=== PATIENT | female | born 1995 | race African-American/Black ===

== ENCOUNTER → 2018-04-27 14:24 | Outpatient (CLI) | payer MEDICAID, SELFPAY ==
[2018-04-27 15:03] LABS: Basophils % 0.3 % (0.1-2.0); Eosinophils # 0.2 K/mm3 (0.0-0.4); Eosinophils % 2.1 % (0.1-12.0); Hematocrit 34.2 % (37.0-47.0); Hemoglobin 10.9 g/dL (12.2-16.2); Lymphocytes # 1.7 K/mm3 (0.7-4.5); Lymphocytes % 15.7 K/mm3 (10-50); Mean Corpuscular HGB Conc 31.8 g/dL (31.8-35.4); Mean Corpuscular Hemoglobin 27.3 pg (27.0-31.2); Mean Platelet Volume 6.9 fl (7.4-10.4); Monocytes # 0.4 K/mm3 (0.1-1.0); Monocytes % 3.6 % (1.7-9.3); Neutrophils # 8.3 K/mm3 (1.8-7.8); Neutrophils % 78.3 % (37.0-80.0); Platelet Count 437 K/mm3 (142-424); Red Blood Count 3.98 M/mm3 (4.20-5.40); Red Cell Distribution Width 14.5 % (11.5-17.5); White Blood Count 10.6 K/mm3 (4.8-10.8)
[2018-04-29 10:12] LABS: HIV Screen 4th Generation wRfx Non Reactive (Non Reactive); Hepatitis B Surface Antigen Negative (Negative); Hepatitis C Antibody 0.2 s/co ratio (0.0-0.9); Rubella Antibodies, IgG 3.38 index (Immune >0.99)
[2018-04-30 09:09] LABS: Rapid Plasma Reagin Ab Titer Non Reactive (NonRea<1:1)
== END ==
PROVIDERS: Family Provider Nurse Practitioner Obstetrics & Gynecology; PCP Physician Assistant; Visit Provider Nurse Practitioner Obstetrics & Gynecology
DX: Z34.90 Encounter for supervision of normal pregnancy, unspecified, unspecified trimester (principal)
CPT/HCPCS: 36415; 85025; 86592; 86703; 86762; 86850; 87340; 87380; G0432

== ENCOUNTER → 2018-05-04 14:06 | Outpatient (CLI) | payer MEDICAID, SELFPAY ==
--- NOTE | 2018-05-04 14:07 | US_ITS ---
US OB /maternal detail: INDICATION: ITS.REASON: US OB Complete ORDERING PHYSICIAN: Srikanth Calero MD PATIENT AGE: 22 years TECHNIQUE: ultrasound transabdominal scanning. COMPARISON: No previous relevant studies. FINDINGS: Single viable intrauterine gestation. Cephalic position. Placenta: Posterior placenta grade . There is amount fluid. The cervix appears satisfactory. Closed and measuring in length. Complete survey performed and was unremarkable on the submitted images as in PACS. No discrete anomalies identified on survey imaging by technologist. Active fetus. Three-vessel cord with satisfactory umbilical cord insertion. 4- chamber heart noted. Survey of brain & ventricles. Face and neck survey unremarkable. Diaphragm and chest views unremarkable. Abdomen: Both kidneys noted and unremarkable. Stomach noted and satisfactory. Spine: Survey of the spine satisfactory with no anomalies identified nor imaged. Both arms and legs noted. Amniotic Fluid: Adequate. Maternal adnexa: No significant findings. Measurements: Average ultrasound age 20w2d. Gestational Age 20w5d. Estimated due date by ultrasound age 0109/19/2018. Estimated weight 323 grams. BPD = 20w6d OFD = 21w0d HC = 20w2d AC = 19w3d FL = 20w4d Growth Percentile= 12% based on established due date of 09/16/2018 Heart Rate = 161 Cerebellum = 20w6d Humerus = 20w6d HC/AC is 1.27 (1.09-1.26). CI is 78% (70-86%). FL/BPD is 69%. FL/AC is 24%. IMPRESSION: There is a single live fetus in cephalic presentation. Fetus is active with all parameters correlating. No obvious anomalies. Average ultrasound age is 20 weeks and 2 days. Sinus posterior and grade 1. Average amniotic fluid volume. See above for detail
== END ==
PROVIDERS: Family Provider Nurse Practitioner Obstetrics & Gynecology; PCP Physician Assistant; Visit Provider Nurse Practitioner Obstetrics & Gynecology
DX: Z36.0 Encounter for antenatal screening for chromosomal anomalies (principal)
CPT/HCPCS: 76811

== ENCOUNTER 2018-08-10 13:57 | Outpatient (CLI) | payer MEDICAID, SELFPAY ==
[2018-08-10 14:14] VITALS: BMI 32.5
[2018-08-10 14:23] LABS: Microscopic, Urine URINE MICROSCOPIC (MICROSCOPIC)
[2018-08-10 14:26] LABS: Appearance,Urine SL CLOUDY (Clear); Bilirubin,Urine Negative (Negative); Blood, Urine Negative (Negative); Color,Urine YELLOW (Yellow); Glucose,Urine (UA) Negative (Negative); Ketones,Urine 1+ (Negative); Leukocyte Esterase,Urine TRACE (Negative); Nitrate,Urine Negative (Negative); PH,Urine 6.5 (5.0-8.5); Protein,Urine 1+ (Negative); Specific Gravity, Urine 1.025 (1.005-1.030)
[2018-08-10 14:29] VITALS: BP 131/75; PULSE 91; TEMP 36.9; O2SAT 96; BMI 32.5
[2018-08-10 14:34] LABS: Amphetamine/Metha Screen,Urine Negative ng/mL (<1000); Barbiturates Screen,Urine Negative ng/mL (<200); Benzodiazepines Screen,Urine Negative ng/mL (<200); Cannabinoid Screen,Urine Negative ng/mL (<50); Cocaine Screen,Urine Negative ng/mL (<300); Methadone Screen,Urine Negative ng/mL (<300); Opiate Screen,Urine Negative ng/mL (<300); Phencyclidine Screen,Urine Negative ng/mL (<25)
[2018-08-10 14:41] LABS: Fetal Membrane Rupture (Rapid) Negative (Negative)
[2018-08-10 14:45] LABS: Bacteria,Urine 1+ /lpf
--- NOTE | 2018-08-10 16:51 | P.PN_ITS ---
Internal Medicine - PN: Subj *Date: 08/10/18 *Time: 16:50 Interval history: She is a 23-year-old 3 para 2 at 34 weeks gestational age. Splaying of some contractions. On the monitor there were a few mild contractions. Her cervix is long and closed. Exam Vital signs and Labs for Last 24 Hours: Temp Pulse BP Pulse Ox 98.4 F 91 H 131/75 96 08/10/18 14:29 08/10/18 14:29 08/10/18 14:29 08/10/18 14:29 Laboratory Results - last 24 hr 08/10/18 14:11: Urine Color Yellow, Urine Appearance Sl cloudy, Urine pH 6.5, Ur Specific [place] 1.025, Urine Protein 1+, Urine Glucose (UA) Negative, Urine Ketones 1+, Urine Blood Negative, Urine Nitrate Negative, Urine Bilirubin Negative, Urine Urobilinogen 1.0, Ur Leukocyte Esterase Trace, Urine RBC None, Urine WBC 3-5, Ur Squamous Epith Cells 5-10, Urine Bacteria 1+ 08/10/18 14:11: Urine Opiates Screen Negative, Urine Methadone Screen Negative, Ur Barbituates Screen Negative, Ur Phencyclidine Scrn Negative, Ur Amphetamines Screen Negative, U Benzodiazepines Scrn Negative, Urine Cocaine Screen Negative, U Marijuana (THC) Screen Negative 08/10/18 14:25: Membrane Rupture Negative I & O for Last 24 hours: Intake & Output 08/08/18 08/09/18 08/10/18 08/11/18 11:59 11:59 11:59 11:59 Weight 208 lb - Constitutional no acute distress Assessment and Plan (1) False labor before 37 completed weeks of gestation Current visit: Yes Status: Acute Category: Medical Code(s): O47.00 - False labor before 37 completed weeks of gestation, unspecified trimester - Assessment and plan all Dx Assessment and Plan for all problems:: We have given her a liter of fluid as well as 1 dose of Brethine and her contractions are settled. She feels much better. We will plan to send her home. We will continue to drink lots of fluids.
== END 2018-08-10 16:52 | disposition home or self-care (01) ==
LOC: OBOUT 13:58 → OB 13:59
PROVIDERS: PCP Physician Assistant; Visit Provider Nurse Practitioner Obstetrics & Gynecology
DX: O47.03 False labor before 37 completed weeks of gestation, third trimester (principal); Z3A.34 34 weeks gestation of pregnancy; M54.5 Low back pain
CPT/HCPCS: 59025; 80305; 81001; 84112; 96360; 96372

== ENCOUNTER → 2018-08-19 16:42 | Outpatient (CLI) | payer SELFPAY | LOC: LAB 16:43 → LAB.DROPOF 08-20 15:01 | PROVIDERS: Visit Provider Nurse Practitioner Obstetrics & Gynecology | DX: Z34.90 Encounter for supervision of normal pregnancy, unspecified, unspecified trimester (principal) | CPT/HCPCS: 86403 ==

== ENCOUNTER 2018-09-08 19:34 | Outpatient (CLI) | payer MEDICAID, SELFPAY ==
[2018-09-08 21:24] VITALS: BMI 35.0
[2018-09-08 21:27] VITALS: BP 142/90; PULSE 90; RESP 20; TEMP 37.3; O2SAT 96; BMI 34.0
[2018-09-08 21:41] LABS: Microscopic, Urine URINE MICROSCOPIC (MICROSCOPIC)
[2018-09-08 21:45] LABS: Appearance,Urine TURBID (Clear); Bilirubin,Urine Negative (Negative); Blood, Urine Negative (Negative); Color,Urine YELLOW (Yellow); Glucose,Urine (UA) Negative (Negative); Ketones,Urine TRACE (Negative); Leukocyte Esterase,Urine 1+ (Negative); Nitrate,Urine Negative (Negative); PH,Urine 7.5 (5.0-8.5); Protein,Urine 1+ (Negative); Specific Gravity, Urine 1.025 (1.005-1.030); Urobilinogen,Urine 0.2 EU/dl (0.2)
[2018-09-08 21:57] LABS: Bacteria,Urine Trace /lpf; Squamous Epithelial Cell,Urine 20-50 #/hpf (0-5)
== END 2018-09-08 22:00 | disposition home or self-care (01) ==
LOC: OBOUT 19:39 → OB 19:39
PROVIDERS: PCP Nurse Practitioner Obstetrics & Gynecology; Visit Provider Obstetrics & Gynecology
DX: O36.8130 Decreased fetal movements, third trimester, not applicable or unspecified (principal); Z3A.38 38 weeks gestation of pregnancy
CPT/HCPCS: 59025; 81001; 87086

== ENCOUNTER 2018-09-13 00:02 | Outpatient (CLI) | payer MEDICAID, SELFPAY ==
[2018-09-13 00:15] VITALS: BMI 74.9
[2018-09-13 00:37] LABS: Appearance,Urine SL CLOUDY (Clear); Bilirubin,Urine Negative (Negative); Blood, Urine Negative (Negative); Color,Urine YELLOW (Yellow); Glucose,Urine (UA) Negative (Negative); Ketones,Urine Negative (Negative); Leukocyte Esterase,Urine 1+ (Negative); Microscopic, Urine URINE MICROSCOPIC (MICROSCOPIC); Nitrate,Urine Negative (Negative); PH,Urine 7.5 (5.0-8.5); Protein,Urine 1+ (Negative)
[2018-09-13 00:39] LABS: Squamous Epithelial Cell,Urine 20-50 #/hpf (0-5)
[2018-09-13 00:42] VITALS: BMI 34.0
[2018-09-13 00:49] LABS: Fetal Membrane Rupture (Rapid) Negative (Negative)
== END 2018-09-13 01:14 | disposition home or self-care (01) ==
LOC: OBOUT 00:03 → OB 00:04
PROVIDERS: PCP Physician Assistant; Referring Provider Nurse Practitioner Obstetrics & Gynecology; Visit Provider Obstetrics & Gynecology
DX: O60.03 Preterm labor without delivery, third trimester (principal); Z3A.37 37 weeks gestation of pregnancy
CPT/HCPCS: 59025; 81001; 84112; 87086

== ENCOUNTER 2018-09-15 04:18 | Inpatient (IN) ==
[2018-09-15 05:58] LABS: Microscopic, Urine URINE MICROSCOPIC (MICROSCOPIC)
[2018-09-15 06:03] LABS: Basophils # 0.1 K/mm3 (0-0.2); Basophils % 0.3 % (0.1-2.0); Eosinophils # 0.1 K/mm3 (0.0-0.4); Eosinophils % 0.5 % (0.1-12.0); Hematocrit 28.7 % (37.0-47.0); Hemoglobin 8.7 g/dL (12.2-16.2); Lymphocytes # 1.8 K/mm3 (0.7-4.5); Mean Corpuscular HGB Conc 30.5 g/dL (31.8-35.4); Mean Corpuscular Hemoglobin 24.4 pg (27.0-31.2); Mean Corpuscular Volume 79.9 fl (81-99); Mean Platelet Volume 8.2 fl (7.4-10.4); Monocytes # 0.8 K/mm3 (0.1-1.0); Monocytes % 5.8 % (1.7-9.3); Neutrophils # 10.5 K/mm3 (1.8-7.8); Neutrophils % 79.4 % (37.0-80.0); Platelet Count 415 K/mm3 (142-424); Red Blood Count 3.59 M/mm3 (4.20-5.40); Red Cell Distribution Width 16.6 % (11.5-17.5); White Blood Count 13.2 K/mm3 (4.8-10.8)
[2018-09-15 06:08] LABS: Appearance,Urine CLEAR (Clear); Bilirubin,Urine Negative (Negative); Blood, Urine Negative (Negative); Color,Urine YELLOW (Yellow); Glucose,Urine (UA) Negative (Negative); Ketones,Urine Negative (Negative); Leukocyte Esterase,Urine 1+ (Negative); Protein,Urine 1+ (Negative); Urobilinogen,Urine 0.2 EU/dl (0.2)
[2018-09-15 06:14] LABS: Amorphous Sediment,Urine Trace /lpf; Bacteria,Urine 2+ /lpf; Mucus,Urine 1+ /lpf; RBC,Urine Occasional #/hpf (0-3)
[2018-09-15 06:17] LABS: Amphetamine/Metha Screen,Urine Negative ng/mL (<1000); Barbiturates Screen,Urine Negative ng/mL (<200); Benzodiazepines Screen,Urine Negative ng/mL (<200); Cannabinoid Screen,Urine Negative ng/mL (<50); Cocaine Screen,Urine Negative ng/mL (<300); Methadone Screen,Urine Negative ng/mL (<300); Opiate Screen,Urine Negative ng/mL (<300); Phencyclidine Screen,Urine Negative ng/mL (<25)
--- NOTE | 2018-09-15 08:47 | Procedure Note ---
- Delivery Note Delivery Date:: 09/15/18 Delivery Time:: 08:33 Anesthesia Type: None Was labor medically induced?: Yes Induction method: per pitocin protocol Gestational age (weeks): 39 Infant delivered prior to 39 weeks?: No Infant Gender: Male at 1 minute: 8 at 5 minutes: 9 AF:: Clear fluid Delivery Procedure:: She is a 23-year-old 4 para 2 aborta 1 who was 39 and 3 weeks gestational age and she has been very uncomfortable and was having some episodes of labor prior to delivery. She also had episodes of increased blood pressure on arrival here today.. As result of that she was offered augmentation of labor at 39 and 3 weeks. She was started on IV oxytocin. She rapidly progressed to full dilation and delivered spontaneously a liveborn male child at 8:33 AM on the morning of September 15, 2018. On deliver the head the anterior shoulder rapidly delivered followed by the rest of the infant's body atraumatically. The baby cried spontaneously. We allowed the cord to continue to pulsate for approximately 1 minute. The cord was then doubly clamped and cut. The baby was then placed on the mother's abdomen for further care. The nurses assigned Apgars of 8 at 1 minute and 9 at 5 minutes. We then obtained cord blood as well as cord pH. PH is currently pending. Using gentle traction on the cord and counter traction on the fundus I was able to easily deliver the placenta intact. It had a normal three-vessel cord. There are no perineal or vaginal lacerations. Estimated blood loss was approximately 400 cc. Her business mail entry clerk is Dr. Espinoza and she plans to bottlefeed. She has O+ blood, she is rubella immune and was group B stopcock is negative. Her blood pressure is still slightly elevated we will observe this over the next short period of time. If it remains elevated we will go ahead and start her on magnesium sulfate. She has received IV antibiotics while in labor since she had a low-grade temperature on arrival up to 100.1 degrees. Placental Delivery Description: Spontaneous
--- NOTE | 2018-09-15 08:50 | History & Physical Report ---
OB - H&P: HPI Antepartum - History of Present Illness Chief complaint: Term , history of labor, increased blood pressure History of present illness: She is a 23-year-old 4 para 2 aborta 1 who is 39 and 3 weeks gestational age. She has had episodes of labor and was observed earlier in the for this. She was offered augmentation of labor at term. She also had an increase in her blood pressure on arrival. It was in the 180/100 range. - History of Present Criteria for establishing EDC:: LMP confirmed by 1st trimester US care: good care Ultrasounds: normal 1st trimester US, normal mid trimester US Obstetrical complications: preeclampsia Medical complications: none - Labs Blood type: O (+) positive Rubella: immune RPR/VDRL: nonreactive GBS status: negative [facility] History I have reviewed the patient's past medical history: Yes Medical History: Denies:: Diabetes Mellitus Type 1, Diabetes Mellitus Type 2 Other Surgeries: Yes: No Previous Surgery. No: Amputation: No Fractures: No - *Social History Smoking Status: Never smoker Alcohol Intake: never *Family Hx:: No significant family history MANAGER TECHNICAL history: Spontaneous Para: 2 Review of Systems - Review of Systems Review of systems:: pertinent systems reviewed and negative unless documented below Meds Home Medications Medication Instructions Recorded Confirmed Type multivitamin with minerals-folic 200 mcg PO DAILY 04/27/18 09/15/18 History acid 200 mcg chewable tablet ferrous sulfate 325 mg (65 mg 325 mg PO DAILY 09/15/18 09/15/18 History iron) tablet,delayed release Allergies Allergy/AdvReac Type Severity Reaction Status Date / Time Penicillins [PENICILLINS] Allergy Unknown -- Verified 09/01/18 16:14 OB - H&P: Exam - Physical Exam Vital signs: Temp Pulse BP Pulse Ox 99.0 F 110 H 166/103 H 100 09/15/18 04:59 09/15/18 04:59 09/15/18 04:59 09/15/18 04:59 OB - Results - Labs Labs: Short CBC 09/15/18 Range/Units 04:45 WBC 13.2 H (4.8-10.8) K/mm3 Hgb 8.7 L (12.2-16.2) g/dL Hct 28.7 L (37.0-47.0) % Plt Count 415 (142-424) K/mm3 Urine 09/15/18 Range/Units 04:35 Urine Color Yellow (Yellow) Urine Appearance Clear (Clear) Urine pH 7.0 (5.0-8.5) Ur Specific [place] 1.020 (1.005-1.030) Urine Protein 1+ (Negative) Urine Glucose (UA) Negative (Negative) OB - A/P Antepartum (1) Term delivered Current visit: Yes Status: Acute (2) induced hypertension, delivered, current hospitalization Current visit: Yes Status: Acute - Additional Plan Planning to breastfeed?: No Plan: induction Additional Information:: She is admitted for augmentation of labor with oxytocin.
[2018-09-15 11:25] LABS: Anion Gap 11.9 mEq/L (5-15); Calcium 8.1 mg/dL (8.5-10.1); Uric Acid 3.8 mg/dL (2.6-7.2)
[2018-09-15 11:33] LABS: Potassium 2.9 mmoL/L (3.5-5.1)
[2018-09-15 11:48] LABS: Basophils % 0.2 % (0.1-2.0); Eosinophils % 0.1 % (0.1-12.0); Hematocrit 28.6 % (37.0-47.0); Hemoglobin 8.6 g/dL (12.2-16.2); Lymphocytes # 0.8 K/mm3 (0.7-4.5); Lymphocytes % 7.2 % (10-50); Mean Corpuscular HGB Conc 30.2 g/dL (31.8-35.4); Mean Corpuscular Volume 79.5 fl (81-99); Mean Platelet Volume 7.7 fl (7.4-10.4); Monocytes # 0.5 K/mm3 (0.1-1.0); Monocytes % 3.9 % (1.7-9.3); Neutrophils # 10.3 K/mm3 (1.8-7.8); Neutrophils % 88.7 % (37.0-80.0); Platelet Count 389 K/mm3 (142-424); Red Cell Distribution Width 16.8 % (11.5-17.5); White Blood Count 11.7 K/mm3 (4.8-10.8)
[2018-09-15 12:16] LABS: Activated Partial Thrombo Time 30.6 seconds (23.6-34.0); INR 0.96 (0.9-1.1); Prothrombin Time 9.9 seconds (9.4-11.8)
[2018-09-15 14:58] LABS: Lymphocytes % 6 % (10-50); Monocytes % 2 % (2-9); Neutrophils % 92 % (42-76); Total Cells Counted 100
[2018-09-15 14:59] LABS: Hypochromasia 2+
[2018-09-16 06:50] LABS: Basophils % 0.3 % (0.1-2.0); Eosinophils % 0.1 % (0.1-12.0); Hematocrit 25.9 % (37.0-47.0); Lymphocytes # 0.7 K/mm3 (0.7-4.5); Lymphocytes % 6.8 % (10-50); Mean Corpuscular HGB Conc 29.7 g/dL (31.8-35.4); Mean Corpuscular Hemoglobin 24.1 pg (27.0-31.2); Mean Corpuscular Volume 81.1 fl (81-99); Monocytes # 0.5 K/mm3 (0.1-1.0); Monocytes % 4.7 % (1.7-9.3); Neutrophils # 8.4 K/mm3 (1.8-7.8); Platelet Count 369 K/mm3 (142-424); Red Blood Count 3.19 M/mm3 (4.20-5.40); White Blood Count 9.6 K/mm3 (4.8-10.8)
[2018-09-16 06:54] LABS: Hemoglobin 7.7 g/dL (12.2-16.2)
[2018-09-16 08:15] LABS: Hypochromasia 2+; Lymphocytes % 9 % (10-50); Monocytes % 2 % (2-9); Neutrophils % 89 % (42-76); Total Cells Counted 100
--- NOTE | 2018-09-16 08:18 | Progress Note ---
Internal Medicine - PN: Subj *Date: 09/16/18 *Time: 08:15 Interval history: She is doing a little better this morning. Yesterday her blood pressure keiko and it was in the 180 over range. As a result of that we have started her on magnesium sulfate 2 g an hour. Her blood pressure is normalized now. When she came in yesterday she had a low-grade temperature and over the course of the day began to have body aches. We elected to perform a rapid flu test and she has influenza a. Have started her on Tamiflu. We have droplet protection in the room. She refused to allow the baby to go to another room with her mother. She has a hemoglobin of 7.7 but she denies any dizziness or weakness. Her hemoglobin prior to delivery was 9.2. I suspect she has anemia as a result of poor diet and lack of vitamin and mineral intake throughout the . Exam Vital signs and Labs for Last 24 Hours: Temp Pulse BP Pulse Ox 99.0 F 110 H 166/103 H 100 09/15/18 04:59 09/15/18 04:59 09/15/18 04:59 09/15/18 04:59 Laboratory Results - last 24 hr 09/15/18 08:44: Cord ABG pH 7.41 09/15/18 10:28: WBC 11.7 H, RBC 3.60 L, Hgb 8.6 L, Hct 28.6 L, MCV 79.5 L, MCH 24.0 L, MCHC 30.2 L, RDW 16.8, Plt Count 389, MPV 7.7, Neut % (Auto) 88.7 H, Lymph % (Auto) 7.2 L, [place] % (Auto) 3.9, Eos % (Auto) 0.1, Baso % (Auto) 0.2, Neut # (Auto) 10.3 H, Lymph # (Auto) 0.8, [place] # (Auto) 0.5, Eos # (Auto) 0.0, Baso # (Auto) 0.0, Total Counted 100, Neutrophils % (Manual) 92 H, Lymphocytes % (Manual) 6 L, Monocytes % (Manual) 2, Platelet Estimate Normal, Hypochromasia 2+ 09/15/18 10:28: PT 9.9, INR 0.96, APTT 30.6, Fibrinogen 423, D-Dimer 2180 H* 09/15/18 10:28: Sodium 136, Potassium 2.9 L*, Chloride 102, Carbon Dioxide 25, Anion Gap 11.9, BUN 5 L, Creatinine 0.65, Estimated Creat Clear 204, Estimated GFR 114, Est GFR ( Amer) 138, Glucose 89, Uric Acid 3.8, Calcium 8.1 L, Magnesium 1.5, AST 13 L, ALT 11 L 09/15/18 21:45: Influenza Type A Ag Positive A, Influenza Type B Ag Negative 09/16/18 06:30: WBC 9.6, RBC 3.19 L, Hgb 7.7 L*, Hct 25.9 L, MCV 81.1, MCH 24.1 L, MCHC 29.7 L, RDW 17.0, Plt Count 369, MPV 8.0, Neut % (Auto) 88.0 H, Lymph % (Auto) 6.8 L, [place] % (Auto) 4.7, Eos % (Auto) 0.1, Baso % (Auto) 0.3, Neut # (Auto) 8.4 H, Lymph # (Auto) 0.7, [place] # (Auto) 0.5, Eos # (Auto) 0.0, Baso # (Auto) 0.0 09/16/18 06:30: Magnesium 5.1 H D I & O for Last 24 hours: Intake & Output 09/13/18 09/14/18 09/15/18 09/16/18 11:59 11:59 11:59 11:59 Output Total 1800 / 1800 Balance -1800 / -1800 Weight 210 lb Microbiology Reports for the Last 24 Hours: Microbiology 09/15/18 04:35 Urine,Clean Catch Urine Culture - Preliminary NO GROWTH AFTER 24 HOURS - Constitutional no acute distress Comments: Her lungs are clear to auscultation. - *Routine Respiratory Exam Absent: accessory muscle use (good air entry bilaterally), wheezes, crackles Assessment and Plan (1) Term delivered Current visit: Yes Status: Acute Category: Medical Code(s): O80 - Encounter for full-term uncomplicated delivery (2) induced hypertension, delivered, current hospitalization Current visit: Yes Status: Acute Category: Medical Code(s): O13.4 - Gestational [-induced] hypertension without significant proteinuria, complicating childbirth (3) Influenza A Current visit: Yes Status: Acute Category: Medical Code(s): J10.1 - Influenza due to other identified influenza virus with other respiratory manifestations (4) Anemia affecting Current visit: Yes Status: Acute Category: Medical Code(s): O99.019 - Anemia complicating , unspecified trimester (5) Hypokalemia Current visit: Yes Status: Acute Category: Medical Code(s): E87.6 - Hypokalemia - Assessment and plan all Dx Assessment and Plan for all problems:: She has anemia likely as result of poor diet and lack of intake of vitamins and iron throughout the she was given prescription for these. She was found to have hypokalemia with a potassium of 2.9 and we have started her on oral potassium replacement. She has influenza A and has started on Tamiflu. We have initiated droplet protection. She is currently on magnesium sulfate at 2 g an hour and her blood pressure has normalized. We will plan to stop the magnesium sulfate at noon today.
[2018-09-16 18:39] VITALS: BP 134/85
--- NOTE | 2018-09-17 08:11 | Discharge Summary ---
General - General Admission date:: 09/15/18 Discharge date: 09/17/18 HPI HPI: She is a 23-year-old 4 now para 3 aborta 1 who is 39+ weeks gestational age. She had increased blood pressure as well as significant episodes of labor and as a result of that we elected to augment her labor. Hospital Course Hospital Course: She was started on IV oxytocin and progressed rapidly to full dilation. She delivered spontaneously a liveborn male child at 8:33 AM on the morning of September 15, 2018. The baby weighed 5 pounds 13 ounces and was 18 inches long. He had Apgars of 8 at 1 minute and 9 at 5 minutes. There are no vaginal or perineal lacerations. On admission she had a low-grade temperature around 100. And after delivery she continued with a temperature and started feeling achy. We did a rapid flu swab and she was diagnosed with influenza A. She was started on Tamiflu and today is feeling much better. She also had an increase in her blood pressure into the 180/110 range. She received IV magnesium sulfate for 24 hours. She was started on labetalol 200 mg twice daily. Blood pressures have mostly normalized at this point in time. She denies headache, scotomata or epigastric pain. Blood work was all normal. She does have significant anemia. She was anemic prior to her delivery and postdelivery her hemoglobin is 7.7. She is otherwise asymptomatic with respect to her anemia. She has O+ blood, she is rubella immune and was group A streptococcus negative. She is bottlefeeding. Her school admissions representative is Dr. Espinoza. She is discharged home to follow-up with me in approximately a week's time to check her blood pressure. She will continue with her labetalol 200 mg twice daily. She will continue her Tamiflu twice daily for the next 3 days. She was given a per scription for iron tablets as well as vitamins. Her condition on discharge is stable and improved. Rhogam Administration: Not Indicated Objective Vital signs: Temp Pulse Resp BP Pulse Ox 99.0 F 94 H 18 134/85 100 09/15/18 04:59 09/16/18 18:12 09/16/18 18:12 09/16/18 18:12 09/16/18 18:12 no acute distress - *Routine HEENT Exam Head: Present: normocephalic - *Routine Respiratory Exam Absent: accessory muscle use Comments: She has good air movement. Results Labs on day of discharge: Labs from last 24 hours 09/16/18 06:30 Total Counted 100 Neutrophils % (Manual) 89 H Lymphocytes % (Manual) 9 L Monocytes % (Manual) 2 Platelet Estimate Normal Hypochromasia 2+ DS: Diagnosis - Discharge Diagnosis (1) Term delivered Status: Acute (2) induced hypertension, delivered, current hospitalization Status: Acute (3) Influenza A Status: Acute (4) Anemia affecting Status: Acute (5) Hypokalemia Status: Acute Discharge Plan - Patient Discharge Instructions ACTIVITY: No heavy lifting DIET: continue same diet - Follow up Plan Disposition: Home, Self-Fci Medications: Home Medications Medication Instructions Recorded Confirmed Type multivitamin with minerals-folic 200 mcg PO DAILY 04/27/18 09/15/18 History acid 200 mcg chewable tablet ferrous sulfate 325 mg (65 mg 325 mg PO DAILY 09/15/18 09/15/18 History iron) tablet,delayed release Ferrous Sulfate [Ferrous Sulfate 325 mg PO DAILY #30 tablet 09/17/18 Rx 325mg Tablet] Labetalol HCl [Normodyne 100mg 200 mg PO Q12H 30 Days tablet 09/17/18 Rx tablet] Oseltamivir Phosphate [Tamiflu 75 mg PO BID #6 capsule 09/17/18 Rx 75mg Capsule] Prescriptions/Medication Reconciliation: New Ferrous Sulfate [Ferrous Sulfate 325mg Tablet] 325 mg PO DAILY #30 tablet Labetalol HCl [Normodyne 100mg tablet] 200 mg PO Q12H 30 Days tablet Oseltamivir Phosphate [Tamiflu 75mg Capsule] 75 mg PO BID #6 capsule Continue multivitamin with minerals-folic acid 200 mcg chewable tablet 200 mcg PO DAILY No Action ferrous sulfate 325 mg (65 mg iron) tablet,delayed release 325 mg PO DAILY
== END 2018-09-17 12:35 | disposition home or self-care (01) | DRG 807 ==
LOC: OB 04:18
PROVIDERS: ADMIT Obstetrics & Gynecology; ATTEND Nurse Practitioner Obstetrics & Gynecology

== ENCOUNTER → 2020-12-06 12:01 | Outpatient (CLI) | payer MEDICAID, SELFPAY ==
[2020-12-06 13:42] LABS: HCG,Quantitative 7262 mIU/ml (0-5.42)
== END ==
PROVIDERS: Visit Provider Nurse Practitioner Obstetrics & Gynecology
DX: Z34.90 Encounter for supervision of normal pregnancy, unspecified, unspecified trimester (principal)
CPT/HCPCS: 36415; 84702

== ENCOUNTER → 2020-12-18 17:49 | Outpatient (CLI) | payer MEDICAID, SELFPAY ==
[2020-12-22 09:14] LABS: Neisseria gonorrhoeae, NAA Negative (Negative)
== END ==
PROVIDERS: Visit Provider Nurse Practitioner Obstetrics & Gynecology
DX: Z34.90 Encounter for supervision of normal pregnancy, unspecified, unspecified trimester (principal)
CPT/HCPCS: 87491; 87591

== ENCOUNTER → 2020-12-26 14:58 | Outpatient (CLI) | payer MEDICAID, SELFPAY ==
--- NOTE | 2020-12-26 14:58 | US_ITS ---
PROCEDURE: US OB <= 14 WEEKS FETUS CLINICAL INDICATION: for dates Evaluate dates COMPARISON: US OBFEMAT US OB /maternal detail from 05/04/2018 FINDINGS: An intrauterine gestational sac is present with a pole with a crown-rump length of 2.03cm correlating to gestational age of 8weeks 5days. heart tones are present with an FHR of 163bpm. Yolk sac is noted. There is a 2 cm left ovarian corpus luteum IMPRESSION: Live IUP at 8 weeks 5 days. Estimated due date by Ultrasound is 08/02/2021 Dictated by: Clemente Bullard MD 12/26/2020 17:16 Clemente Bullard MD in [place] 12/26/2020 17:16
== END ==
PROVIDERS: PCP Physician Assistant; Visit Provider Nurse Practitioner Obstetrics & Gynecology
DX: Z34.90 Encounter for supervision of normal pregnancy, unspecified, unspecified trimester (principal)
CPT/HCPCS: 76801

== ENCOUNTER → 2021-01-15 16:59 | Outpatient (CLI) | payer MEDICAID, SELFPAY | PROVIDERS: Visit Provider Nurse Practitioner Obstetrics & Gynecology | DX: O23.40 Unspecified infection of urinary tract in pregnancy, unspecified trimester (principal) | CPT/HCPCS: 87086; 87088; 87186 ==

== ENCOUNTER 2021-02-04 13:20 | Emergency (ER) | payer MEDICAID, SELFPAY ==
--- NOTE | 2021-02-04 13:25 | PC.NURSE ---
Getting urine sample from pt
--- NOTE | 2021-02-04 13:31 | US_ITS ---
PROCEDURE: US OB >= 14 WEEKS FETUS CLINICAL INDICATION: pain, fall COMPARISON: US US OB <= 14 WEEKS FETUS from 12/26/2020 FINDINGS: There is a single live fetus which is in transverse lie. heart and body motion noted. The cervix is closed. The placenta is anterior. No obvious subchorionic hemorrhage. No previa apparent. Measurements: Average ultrasound age 14weeks 3days. Gestational Age 14weeks 3days Estimated due date by ultrasound age 1108/02/2021. Estimated weight 94g BPD = 14weeks 4days OFD = 14weeks 2days HC = 14weeks 3days AC = 14weeks 2days FL = 14weeks 3days Growth Percentile= 26% Heart Rate = 152bpm Cerebellum = Humerus = HC/AC is 1.2 CI is 0.77 FL/BPD is 0.56 FL/AC is 0.19 IMPRESSION: Single live fetus in transverse lie with an average ultrasound age 14 weeks 3 days. No evidence of previa or abruption. This does not constitute an anatomy exam. Dictated by: Clemente Bullard MD 02/04/2021 14:46 Clemente Bullard MD in [facility] 02/04/2021 14:46
[2021-02-04 13:32] VITALS: BP 114/87; PULSE 89; RESP 16; TEMP 36.7; O2SAT 98; BMI 31.6
[2021-02-04 13:36] LABS: Microscopic, Urine URINE MICROSCOPIC (MICROSCOPIC)
[2021-02-04 13:39] LABS: Appearance,Urine CLEAR (Clear); Blood, Urine Negative (Negative); Color,Urine YELLOW (Yellow); Glucose,Urine (UA) Negative (Negative); Ketones,Urine 3+ (Negative); Leukocyte Esterase,Urine 2+ (Negative); Nitrate,Urine POSITIVE (Negative); Protein,Urine 1+ (Negative)
[2021-02-04 13:41] LABS: Bilirubin,Urine 1+ (Negative)
[2021-02-04 13:45] LABS: Bacteria,Urine 1+ /lpf; RBC,Urine Occasional #/hpf (0-3)
[2021-02-04 13:51] LABS: Basophils % 0.2 % (0.1-2.0); Eosinophils % 0.5 % (0.1-12.0); Hematocrit 35.1 % (37.0-47.0); Hemoglobin 11.7 g/dL (12.2-16.2); Lymphocytes # 1.4 K/mm3 (0.7-4.5); Lymphocytes % 14.5 % (10-50); Mean Corpuscular HGB Conc 33.2 g/dL (31.8-35.4); Mean Corpuscular Hemoglobin 27.3 pg (27.0-31.2); Mean Corpuscular Volume 82.2 fl (81-99); Mean Platelet Volume 8.3 fl (7.4-10.4); Monocytes # 0.5 K/mm3 (0.1-1.0); Monocytes % 4.7 % (1.7-9.3); Neutrophils # 7.7 K/mm3 (1.8-7.8); Neutrophils % 80.1 % (37.0-80.0); Platelet Count 378 K/mm3 (142-424); Red Blood Count 4.26 M/mm3 (4.20-5.40); Red Cell Distribution Width 15.1 % (11.5-17.5); White Blood Count 9.7 K/mm3 (4.8-10.8)
[2021-02-04 13:56] VITALS: BP 112/70; PULSE 80; RESP 18; O2SAT 97
[2021-02-04 13:56] LABS: Alanine Aminotransferase 10 U/L (12-78); Albumin Level 4.3 g/dl (3.5-5.0); Albumin/Globulin Ratio 1.1 (1.1-1.8); Alkaline Phosphatase 82 U/L (38-126); Anion Gap 10.3 mEq/L (5-15); Aspartate Amino Transferase 17 U/L (14-36); Bilirubin,Total 0.5 mg/dl (0.2-1.3); Blood Urea Nitrogen 8 mg/dl (7-17); Calcium 9.2 mg/dl (8.4-10.2); Carbon Dioxide 28 mmol/L (22.0-30.0); Chloride 102 mmol/L (98-107); Creatinine Clearance Estimated 258 mL/min (50-200); Estimated Glomerular Filt Rate 152 ml/min (>60); GFR (African American) 183 ML/MIN (>60); Globulin 3.8 g/dL (1.3-3.2); Glucose 91 mg/dl (74-100); Potassium 3.3 mmoL/L (3.5-5.1); Sodium 137 mmol/L (136-145); Total Protein,Serum 8.1 g/dl (6.3-8.2)
--- NOTE | 2021-02-04 13:57 | PC.NURSE ---
pt going to ultrasound
--- NOTE | 2021-02-04 14:21 | [facility].EDDIZZ ---
ED Disposition Clinical Impression: Vasovagal syncope, Asymptomatic bacteriuria during Qualifiers: Weeks of gestation: 13 weeks Qualified Code(s): Z3A.13 - 13 weeks gestation of Disposition: Home, Self-Care Condition on Discharge: Good Instructions: DI for Syncope in Adults (Fainting) Prescriptions: cephALEXin [Cephalexin 500mg Tab] 500 mg PO BID #14 tab Transmission Status: Pending to [facility] Referrals: Asha Grove [Primary Care Provider] - - Critical Care Critical Care Time: No Attestation: On 02/04/21, the high probability of a clinically significant, sudden or life threatening deterioration of the following system(s) required my full and direct attention, intervention and personal management. The time I documented below is in addition to time spent performing reported procedures but includes the following listed in this critical care notation. Medical Decision Making - Medical Records Medical records reviewed: Yes: I reviewed the patient's medical records. - Bryan Inquiry Pt receiving controlled substance: No Vital Signs: 02/04/21 13:32 02/04/21 13:56 Temperature 98.0 F Temperature Source Oral Pulse Rate 80 Pulse Rate [Left] 89 Respiratory Rate 16 18 Blood Pressure 112/70 Blood Pressure [Right Arm] 114/87 Blood Pressure Mean [Right Arm] 96 Blood Pressure Source [Right Arm] Automatic Cuff Blood Pressure Position [Right Arm] Sitting 02 Sat by Pulse Oximetry 98 97 Oxygen Delivery Method Room Air - Lab Data Lab Results 02/04/21 13:30: Urine Color Yellow, Urine Appearance Clear, Urine pH 7.0, Ur Specific [place] 1.020, Urine Protein 1+, Urine Glucose (UA) Negative, Urine Ketones 3+, Urine Blood Negative, Urine Nitrate Positive, Urine Bilirubin 1+ A, Urine Urobilinogen 1.0, Ur Leukocyte Esterase 2+ A, Urine RBC Occasional, Urine WBC 5-10, Ur Squamous Epith Cells 3-5, Urine Bacteria 1+ 02/04/21 13:30: WBC 9.7, RBC 4.26, Hgb 11.7 L, Hct 35.1 L, MCV 82.2, MCH 27.3, MCHC 33.2, RDW 15.1, Plt Count 378, MPV 8.3, Neut % (Auto) 80.1 H, Lymph % (Auto) 14.5, [place] % (Auto) 4.7, Eos % (Auto) 0.5, Baso % (Auto) 0.2, Neut # (Auto) 7.7, Lymph # (Auto) 1.4, [place] # (Auto) 0.5, Eos # (Auto) 0.0, Baso # (Auto) 0.0 02/04/21 13:30: Sodium 137, Potassium 3.3 L, Chloride 102, Carbon Dioxide 28, Anion Gap 10.3, BUN 8, Creatinine 0.50 L, Estimated Creat Clear 258, Estimated GFR 152, Est GFR ( Amer) 183, Glucose 91, Calcium 9.2, Total Bilirubin 0.5, AST 17, ALT 10 L, Alkaline Phosphatase 82, Total Protein 8.1, Albumin 4.3, Globulin 3.8 H, Albumin/Globulin Ratio 1.1, HCG, Quant [id number] H Result diagrams: 02/04/21 13:30 02/04/21 13:30 Orders (Tests/Meds): ED MEDICATIONS Discontinued Medications Generic Name Dose Route Start Last Admin Trade Name Freq PRN Reason Stop Dose Admin Acetaminophen 1,000 mg 02/04/21 13:30 02/04/21 13:35 Acetaminophen 500mg Tab PO 02/04/21 13:31 1,000 mg ONCE ONE Administration Sodium Chloride 1,000 mls @ 999 mls/hr 02/04/21 13:30 02/04/21 13:35 Sod Chlor 0.9% 1000ml Bag IV 02/04/21 14:30 999 mls/hr .[id number] GLORIA Administration ORDERS Category Date Time Status Urine Culture Stat Micro 02/04/21 13:30 Received - US Data US Images: Pelvis ED US Reviewed: Yes: I have reviewed the patient's US results, I have viewed radiologist's interpretation Findings Narrative: IMPRESSION: Single live fetus in transverse lie with an average ultrasound age 14 weeks 3 days. No evidence of previa or abruption. This does not constitute an anatomy exam. - Reevaluation(s) Time: 14:59 Reevaluation #1: On reevaluation, the patient is feeling much better. Repeat neurologic exam is normal. Patient is ambulatory. Ultrasound was unremarkable. Patient does have some bacteriuria. She placed on a short course antibiotics. She needs a follow-up with her primary SEAM RUBBER. Given strict return precautions. Marisol
[2021-02-04 15:11] VITALS: BP 116/81; PULSE 70; RESP 16; TEMP 36.9; O2SAT 100
== END 2021-02-04 15:15 | disposition home or self-care (01) ==
PROVIDERS: Emergency Provider Emergency Medicine; PCP Physician Assistant
DX: R55 Syncope and collapse (principal); O99.891 Other specified diseases and conditions complicating pregnancy; Z3A.15 15 weeks gestation of pregnancy; Z88.0 Allergy status to penicillin
CPT/HCPCS: 76805; 80053; 81001; 84702; 85025; 87086; 87088; 87186; 96365; 99283

== ENCOUNTER → 2021-03-15 15:18 | Outpatient (CLI) | payer MEDICAID, SELFPAY ==
--- NOTE | 2021-03-15 15:18 | US_ITS ---
PROCEDURE: US OB /MATERNAL DETAIL CLINICAL INDICATION: 20 wk + Anatomy Scan-US OB COMPLETE COMPARISON: US US OB >= 14 WEEKS FETUS from 02/04/2021 FINDINGS: There is a single live intrauterine gestation which ended up in cephalic presentation at the into the exam.. heart body motion noted. The cervix is closed measuring approximately 4 cm. The placenta is posterior and grade 1. Complete survey performed and was unremarkable on the submitted images as in PACS. No discrete anomalies identified on survey imaging by technologist. Active fetus. Three-vessel cord with satisfactory umbilical cord insertion. 4- chamber heart noted. Survey of brain & ventricles Unremarkable. Face and neck survey unremarkable. Diaphragm and chest views unremarkable. Abdomen: Both kidneys noted and unremarkable. Stomach noted and satisfactory. Spine: Survey of the spine satisfactory with no anomalies identified nor imaged. Both arms and legs noted. Amniotic Fluid: Adequate. Maternal adnexa: No significant findings. Measurements: Average ultrasound age 20weeks. Gestational Age 20weeks Estimated due date by ultrasound age 1108/02/2021. Estimated weight 323g BPD = 20weeks 3days OFD = 19weeks 3days HC = 19weeks 1day AC = 20weeks 2days FL = 20weeks Growth Percentile= 68% Heart Rate = 144bpm Cerebellum = 20weeks 2days Humerus = 20weeks 5days HC/AC is 1.09 CI is 0.85 FL/BPD is 0.67 FL/AC is 0.21 IMPRESSION: Live IUP at 20 weeks in cephalic presentation. All parameters correlate with no obvious anomalies. Please see above for detail. Dictated by: Clemente Bullard MD 03/18/2021 07:57 Clemente Bullard MD in [place] 03/18/2021 07:57
== END ==
PROVIDERS: PCP Physician Assistant; Visit Provider Nurse Practitioner Obstetrics & Gynecology
DX: Z36.0 Encounter for antenatal screening for chromosomal anomalies (principal)
CPT/HCPCS: 76811

== ENCOUNTER 2021-05-05 18:54 | Emergency (ER) | payer MEDICAID, SELFPAY ==
[2021-05-05 18:55] VITALS: BP 150/87; PULSE 104; RESP 18; TEMP 38.2; O2SAT 95; BMI 32.5
--- NOTE | 2021-05-05 19:14 | US_ITS ---
PROCEDURE INFORMATION: Exam: US After First Trimester, Transabdominal Exam date and time: 05/05/2021 7:14 PM Age: 25 years old Clinical indication: Lmp or gestational age (in weeks): Marni 2020; Other: Mother has covid and states she doesnt feel movement; ; Additional info: Mother has covid. Doesnt feel fetus move. Check viabilty TECHNIQUE: Imaging protocol: Real-time transabdominal obstetrical ultrasound of the maternal pelvis and a second or third trimester with image documentation. COMPARISON: US OB /MATERNAL DETAIL 03/15/2021 3:19 PM FINDINGS: Gestation: Single live intrauterine gestation. heart rate: heart rate of 165 bpm. Placenta: Unremarkable. No subchorionic bleed. BIOMETRY: Gestational age (AUA): Gestational age of 26 weeks and 5 days. Estimated due date (AUA): MARNI 08/06/2021. Estimated weight: weight of 983 g. Biparietal diameter: BPD 6.52 cm. Head circumference: Head circumference 24.01 cm. Abdominal circumference: Abdominal circumference 22.31 cm. Femur length: Femur length 5.01 cm. IMPRESSION: Single viable intrauterine gestation described above.
--- NOTE | 2021-05-05 19:14 | PC.NURSE ---
called OB to perform heart tones
--- NOTE | 2021-05-05 19:24 | HMH.EDWEAK ---
ED Disposition Condition on Discharge: Good - Critical Care Critical Care Time: No <Jhony Kearns - Last Filed: 05/05/21 20:04> <Haroldo Thacker - Last Filed: 05/05/21 20:54> Clinical Impression: Generalized weakness Qualifiers: Weeks of gestation: 27 weeks Qualified Code(s): Z3A.27 - 27 weeks gestation of UTI (urinary tract infection) Qualifiers: Urinary tract infection type: site unspecified Hematuria presence: without hematuria Qualified Code(s): N39.0 - Urinary tract infection, site not specified Disposition: Home, Self-Care Instructions: DI for COVID-19 (Suspected or Confirmed ), DI for Urinary Tract Infection (UTI) Additional Instructions: fluids and see pcp for follow up and culture results Referrals: Provider,Referral, MD [Primary Care Provider] - Attestation: On 05/05/21, the high probability of a clinically significant, sudden or life threatening deterioration of the following system(s) required my full and direct attention, intervention and personal management. The time I documented below is in addition to time spent performing reported procedures but includes the following listed in this critical care notation. Medical Decision Making - Medical Records Medical records reviewed: Yes: I reviewed the patient's medical records. - Bryan Inquiry Pt receiving controlled substance: No - Lab Data Result diagrams: 05/05/21 19:09 05/05/21 19:09 <SomJhony - Last Filed: 05/05/21 20:04> - Lab Data Lab results reviewed: Yes: I reviewed the patient's lab results. Result diagrams: 05/05/21 19:09 05/05/21 19:09 - US Data US Images: Pelvis Preliminary Findings: Normal/NAD (nl movement ) <Haroldo Thacker - Last Filed: 05/05/21 20:54> Vital Signs: 05/05/21 18:55 Temperature 100.8 F H Temperature Source Oral Pulse Rate [Right] 104 H Respiratory Rate 18 Blood Pressure [Right Arm] 150/87 H Blood Pressure Mean [Right Arm] 108 02 Sat by Pulse Oximetry 95 - Lab Data Lab Results 05/05/21 19:09: WBC 7.5, RBC 3.57 L, Hgb 9.7 L, Hct 30.5 L, MCV 85.3, MCH 27.2, MCHC 31.9, RDW 14.7, Plt Count 398, MPV 8.5, Neut % (Auto) 75.4, Lymph % (Auto) 16.3, [place] % (Auto) 7.6, Eos % (Auto) 0.0 L, Baso % (Auto) 0.7, Neut # (Auto) 5.6, Lymph # (Auto) 1.2, [place] # (Auto) 0.6, Eos # (Auto) 0.0, Baso # (Auto) 0.1 05/05/21 19:09: Sodium 135 L, Potassium 2.7 L*, Chloride 102, Carbon Dioxide 24, Anion Gap 11.7, BUN 2 L, Creatinine 0.50 L, Estimated Creat Clear 266, Estimated GFR 152, Est GFR ( Amer) 183, Glucose 105 H, Calcium 8.6, Total Bilirubin 0.3, AST 26, ALT 13, Alkaline Phosphatase 114, Total Protein 7.1, Albumin 3.5, Globulin 3.6 H, Albumin/Globulin Ratio 1.0 L, HCG, Quant 9562 H 05/05/21 20:37: Urine Color Yellow, Urine Appearance Clear, Urine pH 6.0, Ur Specific [place] 1.020, Urine Protein Trace, Urine Glucose (UA) Negative, Urine Ketones 3+, Urine Blood Trace-i, Urine Nitrate Negative, Urine Bilirubin Negative, Urine Urobilinogen 1.0, Ur Leukocyte Esterase 2+ A Orders (Tests/Meds): ED MEDICATIONS Generic Name Dose Route Start Last Admin Trade Name Freq PRN Reason Stop Dose Admin Sodium Chloride 1,000 mls @ 999 mls/hr 05/05/21 19:15 05/05/21 19:17 Sod Chlor 0.9% 1000ml Bag IV 05/05/21 20:15 999 mls/hr .[id number] GLORIA Administration Discontinued Medications Generic Name Dose Route Start Last Admin Trade Name Freq PRN Reason Stop Dose Admin Acetaminophen 1,000 mg 05/05/21 19:12 05/05/21 19:17 Acetaminophen 500mg Tab PO 05/05/21 19:13 1,000 mg ONCE ONE Administration Potassium Chloride 60 meq 05/05/21 19:42 05/05/21 19:44 Potassium Chloride 20meq Tab PO 05/05/21 19:43 60 meq ONCE ONE Administration ORDERS Category Date Time Status Urinalysis and Microscopic Stat Lab 05/05/21 20:37 Results Urine Culture Stat Micro 05/05/21 20:37 Received US OB >= 14 weeks Fetus Stat Ultrasound 05/05/21 19:14 Taken
[2021-05-05 19:32] LABS: Basophils # 0.1 K/mm3 (0-0.2); Basophils % 0.7 % (0.1-2.0); Hematocrit 30.5 % (37.0-47.0); Hemoglobin 9.7 g/dL (12.2-16.2); Lymphocytes # 1.2 K/mm3 (0.7-4.5); Lymphocytes % 16.3 % (10-50); Mean Corpuscular HGB Conc 31.9 g/dL (31.8-35.4); Mean Corpuscular Hemoglobin 27.2 pg (27.0-31.2); Mean Corpuscular Volume 85.3 fl (81-99); Mean Platelet Volume 8.5 fl (7.4-10.4); Monocytes # 0.6 K/mm3 (0.1-1.0); Monocytes % 7.6 % (1.7-9.3); Neutrophils # 5.6 K/mm3 (1.8-7.8); Neutrophils % 75.4 % (37.0-80.0); Platelet Count 398 K/mm3 (142-424); Red Blood Count 3.57 M/mm3 (4.20-5.40); Red Cell Distribution Width 14.7 % (11.5-17.5); White Blood Count 7.5 K/mm3 (4.8-10.8)
[2021-05-05 19:36] LABS: Chloride 102 mmol/L (98-107); Sodium 135 mmol/L (136-145)
[2021-05-05 19:39] LABS: Alanine Aminotransferase 13 U/L (12-78); Albumin Level 3.5 g/dl (3.5-5.0); Alkaline Phosphatase 114 U/L (38-126); Anion Gap 11.7 mEq/L (5-15); Aspartate Amino Transferase 26 U/L (14-36); Bilirubin,Total 0.3 mg/dl (0.2-1.3); Blood Urea Nitrogen 2 mg/dl (7-17); Carbon Dioxide 24 mmol/L (22.0-30.0); Creatinine Clearance Estimated 266 mL/min (50-200); Estimated Glomerular Filt Rate 152 ml/min (>60); GFR (African American) 183 ML/MIN (>60); Globulin 3.6 g/dL (1.3-3.2); Total Protein,Serum 7.1 g/dl (6.3-8.2)
[2021-05-05 19:40] LABS: Calcium 8.6 mg/dl (8.4-10.2); Glucose 105 mg/dl (74-100)
[2021-05-05 19:42] LABS: Potassium 2.7 mmoL/L (3.5-5.1)
--- NOTE | 2021-05-05 19:42 | PC.NURSE ---
FHR 150-160
--- NOTE | 2021-05-05 19:44 | PC.NURSE ---
Critical Potasium called from Yong in Lab, results given to Dr Swartz, Name and verified.
[2021-05-05 19:48] LABS: HCG,Quantitative 9562 mIU/ml (0-5.42)
[2021-05-05 20:42] LABS: Microscopic, Urine URINE MICROSCOPIC (MICROSCOPIC)
[2021-05-05 20:43] LABS: Appearance,Urine CLEAR (Clear); Bilirubin,Urine Negative (Negative); Blood, Urine TRACE-I (Negative); Color,Urine YELLOW (Yellow); Glucose,Urine (UA) Negative (Negative); Ketones,Urine 3+ (Negative); Leukocyte Esterase,Urine 2+ (Negative); Nitrate,Urine Negative (Negative); Protein,Urine TRACE (Negative)
[2021-05-05 20:56] LABS: Bacteria,Urine 4+ /lpf; WBC,Urine 50-100 #/hpf (0-3)
[2021-05-05 21:09] VITALS: BP 134/78; PULSE 94; RESP 18; TEMP 37.1; O2SAT 96
== END 2021-05-05 21:15 | disposition home or self-care (01) ==
PROVIDERS: Emergency Provider Emergency Medicine
DX: U07.1 COVID-19 (principal); O23.12 Infections of bladder in pregnancy, second trimester; Z3A.27 27 weeks gestation of pregnancy; Z88.0 Allergy status to penicillin
CPT/HCPCS: 76805; 80053; 81001; 84702; 85025; 87086; 87088; 87186; 96365; 99283

== ENCOUNTER → 2021-07-02 14:24 | Outpatient (CLI) | payer MEDICAID, SELFPAY | PROVIDERS: Visit Provider Nurse Practitioner Obstetrics & Gynecology | DX: Z34.90 Encounter for supervision of normal pregnancy, unspecified, unspecified trimester (principal); Z3A.35 35 weeks gestation of pregnancy | CPT/HCPCS: 86403 ==

== ENCOUNTER 2021-07-26 04:04 | Inpatient (IN) | payer MEDICAID, SELFPAY ==
[2021-07-26] VITALS (20 sets, daily range): BP systolic 119–181; BP diastolic 73–112; PULSE 66–98; RESP 16–20; TEMP 36.4–36.8; O2SAT 94–98; BMI 33.1
[2021-07-26 05:24] LABS: Coronavirus 19, PCR Not Detected (NotDetected); Influenza A, PCR Not Detected (NotDetected); Influenza B, PCR Not Detected (NotDetected)
[2021-07-26 08:51] LABS: Basophils % 0.3 % (0.1-2.0); Eosinophils % 0.3 % (0.1-12.0); Lymphocytes # 1.9 K/mm3 (0.7-4.5); Lymphocytes % 19.5 % (10-50); Monocytes # 0.6 K/mm3 (0.1-1.0); Monocytes % 5.5 % (1.7-9.3); Neutrophils # 7.3 K/mm3 (1.8-7.8); Neutrophils % 74.4 % (37.0-80.0)
[2021-07-26 08:52] LABS: Hematocrit 28.5 % (37.0-47.0); Hemoglobin 8.7 g/dL (12.2-16.2); Mean Corpuscular HGB Conc 30.4 g/dL (31.8-35.4); Mean Corpuscular Hemoglobin 24.8 pg (27.0-31.2); Mean Corpuscular Volume 81.6 fl (81-99); Platelet Count 502 K/mm3 (142-424); Red Blood Count 3.49 M/mm3 (4.20-5.40); Red Cell Distribution Width 16.8 % (11.5-17.5)
[2021-07-26 08:53] LABS: White Blood Count 9.9 K/mm3 (4.8-10.8)
--- NOTE | 2021-07-26 09:28 | HMH.LABNOT ---
Labor Note - Subjective: Date: 07/26/21 Time: 09:28 regular contraction - Objective: NST:: Non-reactive Contractions:: every 2-3 minutes Cervical Dilation:: 3 Effacement:: 75% Station: -1 Membranes: artificially ruptured - Fetus: Monitoring?: Yes monitoring type:: Internal and External Comment:: I inserted an IUPC - Assessment: Labor progressing?: Yes Cephalopelvic disproportion?: No Patient Problems: All Active Problems Vasovagal syncope (Acute) Asymptomatic bacteriuria during (Acute) Generalized weakness (Acute) UTI (urinary tract infection) (Acute) (Acute) Influenza A (Acute) Hypokalemia (Acute) - Plan: Anesthesia for epidural?: No Continue to labor down?: Yes Plan for ?: No Continue to monitor?: Yes Start pushing?: No Comment:: Nonstress test is reactive. She is having contractions every 3 to 4 minutes. I ruptured her membranes and there was clear fluid. I inserted IPC. We will expect a vaginal delivery.
--- NOTE | 2021-07-26 09:30 | HMH.OBAPHP ---
OB - H&P: HPI Antepartum - History of Present Illness Chief complaint: Term History of present illness: She is a 26-year-old 4 para 3 who was 39 weeks gestational age. She has been having contractions irregularly. She requested induction for delivery at term. She has had fairly rapid deliveries in the past. - History of Present Criteria for establishing EDC:: LMP confirmed by 1st trimester US care: good care Ultrasounds: normal 1st trimester US, normal mid trimester US Obstetrical complications: none Medical complications: none - Labs Blood type: O (+) positive Rubella: immune RPR/VDRL: nonreactive GBS status: negative HBsAG: negative [facility] History I have reviewed the patient's past medical history: Yes Medical History: Denies:: Diabetes Mellitus Type 1, Diabetes Mellitus Type 2 *Have you ever received a pneumonia vaccine?: No *Have you received a flu vaccine this season?: No Other Surgeries: Yes: No Previous Surgery. 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 Review of Systems - Review of Systems Review of systems:: pertinent systems reviewed and negative unless documented below Meds Home Medications Medication Instructions Recorded Confirmed Type PNV 153-FA 400 mcg-om3 35 mg-dha tab PO 06/25/21 07/19/21 History 25 mg-epa 5 mg-fish oil chew tablet amoxicillin 500 mg capsule 500 mg PO BID 5 Days #10 cap 07/19/21 07/19/21 Rx Allergies Allergy/AdvReac Type Severity Reaction Status Date / Time Penicillins [PENICILLINS] Allergy Unknown -- Verified 07/19/21 10:43 OB - H&P: Exam - Physical Exam Vital signs: Temp Pulse Resp BP Pulse Ox 98.2 F 93 H 18 132/73 97 07/26/21 05:28 07/26/21 05:28 07/26/21 05:28 07/26/21 05:28 07/26/21 05:28 - Constitutional no acute distress - Routine HEENT Exam Head: Present: normocephalic Eye: Present: EOMI, PERRL ENT: Present: mucous membranes moist - Routine Neck Exam Present: supple, full ROM - Routine Respiratory Exam Absent: accessory muscle use (good air entry bilaterally), respiratory distress, wheezes, crackles - Routine Cardiovascular Exam Present: RRR. Absent: murmur - Routine Abdominal Exam Present: soft, normoactive bowel sounds. Absent: tenderness, distended, guarding - Routine Rectal Exam Patient deferred: visual exam, digital exam - Routine Exam Patient deferred: external exam, groin exam, perineal exam - Routine Extremities Exam Present: full ROM. Absent: cyanosis, edema - Routine Skin Exam Present: intact. Absent: cyanosis - Routine Neurological Exam Present: alert, oriented X3 - Routine Psychiatric Exam Present: normal affect OB - Results - Labs Labs: Short CBC 07/26/21 07/26/21 Range/Units 05:15 05:15 WBC Cancelled 9.9 Hgb Cancelled 8.7 L Hct Cancelled 28.5 L Plt Count Cancelled 502 H OB - A/P Antepartum (1) Normal delivery at term Status: Acute - Additional Plan Planning to breastfeed?: No Plan: induction Additional Information:: We expect a vaginal delivery.
--- NOTE | 2021-07-26 11:05 | P.PN_ITS ---
[facility] Anesthesia Checklist - Patient Identification Patient Identification: Arm Band, Verbal (Name & ) - Structural Data Admitted From: Inpatient Planned Operative Procedure/s: CUCO Consent for Planned Operative Procedure(s) Verified: Yes Verified Documents: Surgical Consent - NPO Status Verified Time NPO: 00:00 - Cardiovascular Assessment Heart Sounds: S1 & S2 - Airway Assessment C-Spine Mobility Assessed: Yes TMJ Mobility Assessed: Yes Dentition: Good Dentition - Neurological Assessment Level of Consciousness: Alert, Appropriate - Anesthesia Plan Anesthesia Risk discussed: Yes ASA Class: II Anesthesia Type: Epidural [facility] History I have reviewed the patient's past medical history: Yes Medical History: Denies:: Diabetes Mellitus Type 1, Diabetes Mellitus Type 2 *Have you ever received a pneumonia vaccine?: No *Have you received a flu vaccine this season?: No Anesthesia experience/problems:: none Other Surgeries: Yes: No Previous Surgery. 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
--- NOTE | 2021-07-26 11:27 | HMH.LABNOT ---
Labor Note - Subjective: Date: 07/26/21 Time: 11:27 regular contraction - Objective: NST:: Reactive Contractions:: every 2-3 minutes Cervical Dilation:: 7-8 Effacement:: 100% Station: 0 Membranes: artificially ruptured - Fetus: Monitoring?: Yes monitoring type:: Internal and External - Assessment: Labor progressing?: Yes Cephalopelvic disproportion?: No Patient Problems: All Active Problems Vasovagal syncope (Acute) Asymptomatic bacteriuria during (Acute) Generalized weakness (Acute) UTI (urinary tract infection) (Acute) Normal delivery at term (Acute) (Acute) Influenza A (Acute) Hypokalemia (Acute) - Plan: Anesthesia for epidural?: Yes Continue to labor down?: Yes Plan for ?: No Continue to monitor?: Yes Start pushing?: No Comment:: She is doing well. She is 7 to 8 cm. I had her push a little bit and there is still a little cervix anteriorly. We will let the babies had come down a little more. We will expect a vaginal delivery.
--- NOTE | 2021-07-26 12:04 | HMH.DN ---
- Delivery Note Delivery Date:: 07/26/21 Delivery Time:: 11:46 Anesthesia Type: Epidural Was labor medically induced?: Yes Induction method: per pitocin protocol Gestational age (weeks): 39 delivered prior to 39 weeks?: No Gender: Male at 1 minute: 9 at 5 minutes: 9 Delivery Procedure:: She is a 26-year-old 4 para 4 young lady who was term. She was feeling uncomfortable and having a few contractions so we elected to deliver her at term. She was started on IV oxytocin had her membranes ruptured. She progressed under labor epidural to full dilation and delivered spontaneously a liveborn male child at 11:46 AM on the morning of July 26, 2021. On deliver the head the anterior shoulder then easily delivered followed by the rest infant's body atraumatically. The baby was vigorous so we allowed the cord to continue to pulsate for approximately 1 minute. The cord is then doubly clamped and cut and the infant was placed on the mother's abdomen for further care. The nurses assigned Apgars of 9 at 1 minute and 9 at 5 minutes. We then obtained cord blood. She received IV oxytocin and using gentle traction on the cord and countertraction on the fundus I was able to easily deliver the placenta intact 3 minutes after delivery. He had a normal three-vessel cord. There were no perineal or vaginal lacerations. She has O+ blood, she is rubella immune and was group B streptococcus negative. She plans to bottlefeed. Her estimated blood loss was approximately 150 cc. Placental Delivery Description: Spontaneous
[2021-07-26 15:45] LABS: Microscopic, Urine URINE MICROSCOPIC (MICROSCOPIC)
[2021-07-26 15:55] LABS: Appearance,Urine CLOUDY (Clear); Bilirubin,Urine Negative (Negative); Blood, Urine 3+ (Negative); Color,Urine DK YELLOW (Yellow); Glucose,Urine (UA) Negative (Negative); Ketones,Urine TRACE (Negative); Leukocyte Esterase,Urine 1+ (Negative); Nitrate,Urine Negative (Negative); PH,Urine 6.5 (5.0-8.5); Protein,Urine 1+ (Negative); Specific Gravity, Urine >= 1.030 (1.005-1.030); Urobilinogen,Urine 0.2 EU/dl (0.2)
[2021-07-26 16:03] LABS: Amphetamine/Metha Screen,Urine Negative ng/ml (<1000); Benzodiazepines Screen,Urine Negative ng/ml (<200)
[2021-07-26 16:04] LABS: Barbiturates Screen,Urine Negative ng/ml (<200); Cannabinoid Screen,Urine Negative ng/ml (<50)
[2021-07-26 16:06] LABS: Methadone Screen,Urine Negative ng/ml (<300); Opiate Screen,Urine Negative ng/ml (<300)
[2021-07-26 16:07] LABS: Phencyclidine Screen,Urine Negative ng/ml (<25)
[2021-07-26 16:17] LABS: Cocaine Screen,Urine Negative ng/ml (<300)
[2021-07-26 18:01] LABS: Bacteria,Urine 2+ /lpf; RBC,Urine 20-50 #/hpf (0-3)
--- NOTE | 2021-07-26 19:06 | HMH.ACPN2 ---
Internal Medicine - PN: Subj *Date: 07/26/21 *Time: 19:06 Interval history: I was asked see the patient she was about 7 hours and began passing large clots. She had 6 hours of IV oxytocin. At this point in time she has lost 1050 cc of blood through measurement with a scale. She is hemodynamically stable. She has 2 IVs running and she was anemic when she had the baby. We will plan to transfuse her 2 units of blood. Exam Vital signs and Labs for Last 24 Hours: Temp Pulse Resp BP Pulse Ox 98.1 F 69 20 119/75 98 07/26/21 16:14 07/26/21 16:14 07/26/21 16:14 07/26/21 16:14 07/26/21 16:14 Laboratory Results - last 24 hr 07/26/21 05:15: WBC Cancelled, Corrected WBC Cancelled, RBC Cancelled, Hgb Cancelled, Hct Cancelled, MCV Cancelled, MCH Cancelled, MCHC Cancelled, RDW Cancelled, Plt Count Cancelled, MPV Cancelled, Neut % (Auto) Cancelled, Lymph % (Auto) Cancelled, [place] % (Auto) Cancelled, Eos % (Auto) Cancelled, Baso % (Auto) Cancelled, Neut # (Auto) Cancelled, Lymph # (Auto) Cancelled, [place] # (Auto) Cancelled, Eos # (Auto) Cancelled, Baso # (Auto) Cancelled 07/26/21 05:15: Blood Type O Positive, Antibody Screen Negative, Crossmatch (AHG) See Detail 07/26/21 05:15: SARS-CoV-2 (PCR) Not detected, Influenza A Untype (PCR) Not detected, Influenza Type B (PCR) Not detected 07/26/21 05:15: WBC 9.9, RBC 3.49 L, Hgb 8.7 L, Hct 28.5 L, MCV 81.6, MCH 24.8 L, MCHC 30.4 L, RDW 16.8, Plt Count 502 H, MPV 8.0, Neut % (Auto) 74.4, Lymph % (Auto) 19.5, [place] % (Auto) 5.5, Eos % (Auto) 0.3, Baso % (Auto) 0.3, Neut # (Auto) 7.3, Lymph # (Auto) 1.9, [place] # (Auto) 0.6, Eos # (Auto) 0.0, Baso # (Auto) 0.0 07/26/21 08:58: Urine Color Dk yellow, Urine Appearance Cloudy, Urine pH 6.5, Ur Specific [place] >= 1.030, Urine Protein 1+, Urine Glucose (UA) Negative, Urine Ketones Trace, Urine Blood 3+, Urine Nitrate Negative, Urine Bilirubin Negative, Urine Urobilinogen 0.2, Ur Leukocyte Esterase 1+ A, Urine RBC 20-50, Urine WBC 5-10, Ur Squamous Epith Cells 3-5, Urine Bacteria 2+ 07/26/21 08:58: Urine Opiates Screen Negative, Urine Methadone Screen Negative, Ur Barbituates Screen Negative, Ur Phencyclidine Scrn Negative, Ur Amphetamines Screen Negative, U Benzodiazepines Scrn Negative, Urine Cocaine Screen Negative, U Marijuana (THC) Screen Negative I & O for Last 24 hours: Intake & Output 07/24/21 07/25/21 07/26/21 07/27/21 11:59 11:59 11:59 11:59 Weight 218 lb - Constitutional no acute distress Comments: She looks pale. - *Routine Exam Comments: I was able to retrieve about 500 cc of clots from the lining of the uterus. It is no longer actively bleeding. The uterus has contracted down well. Assessment and Plan (1) Normal delivery at term Status: Acute Category: Medical Code(s): O80 - Encounter for full-term uncomplicated delivery (2) Antepartum anemia complicating Status: Acute Category: Medical Code(s): O99.019 - Anemia complicating , unspecified trimester (3) hemorrhage Status: Acute Category: Medical Code(s): O72.1 - Other immediate hemorrhage - Assessment and plan all Dx Assessment and Plan for all problems:: I was able to evacuate about 500 cc of clots from the lining of the uterus. The uterus is now completely contracted down well. She is no longer actively bleeding. We will continue to monitor her blood loss. She has lost a total of 8050 cc at this episode. She had lost about 350 cc with the delivery and oozing. We will plan to transfuse her 2 units of blood at this point time. She has 2 IVs running. She is hemodynamically stable. We will give her another dose of Hemabate now and continue with IV oxytocin overnight.
[2021-07-26 19:09] LABS: Hematocrit 24.9 % (37.0-47.0); Hemoglobin 7.9 g/dL (12.2-16.2)
[2021-07-27 00:45] VITALS: BP 138/93; PULSE 69; RESP 16; TEMP 36.6; O2SAT 98
[2021-07-27 00:56] LABS: Hematocrit 35.2 % (37.0-47.0)
[2021-07-27 00:57] LABS: Hemoglobin 11.4 g/dL (12.2-16.2)
[2021-07-27 06:38] LABS: Hematocrit 32.7 % (37.0-47.0); Hemoglobin 10.6 g/dL (12.2-16.2)
[2021-07-27 08:23] VITALS: BP 129/80; PULSE 75; RESP 18; TEMP 37; O2SAT 97
[2021-07-27 08:36] LABS: HIV Screen 4th Generation wRfx Non Reactive (Non Reactive); Hepatitis B Surface Antigen Negative (Negative); Rubella Antibodies, IgG 2.64 index (Immune >0.99)
[2021-07-27 12:30] VITALS: BP 114/64; PULSE 57; RESP 17; TEMP 36.8; O2SAT 95
[2021-07-27 13:30] LABS: Rapid Plasma Reagin Ab Titer Non Reactive (NonRea<1:1)
--- NOTE | 2021-07-27 13:38 | HMH.ACPN2 ---
Internal Medicine - PN: Brennon *Date: 07/27/21 *Time: 13:38 Interval history: She is doing a lot better this morning. Her lochia is normal. She did have some hemorrhage yesterday and did receive 2 units of blood. Her hemoglobin is 10.6. We have her continuing with Cytotec for the next 24 hours. She does have a Yahir tract infection and it did grow out gram-negative rods. We will go ahead and start Macrobid. She is otherwise asymptomatic. Exam Vital signs and Labs for Last 24 Hours: Temp Pulse Resp BP Pulse Ox 98.3 F 57 L 17 114/64 95 07/27/21 12:30 07/27/21 12:30 07/27/21 12:30 07/27/21 12:30 07/27/21 12:30 Laboratory Results - last 24 hr 07/26/21 05:15: Blood Type O Positive, Antibody Screen Negative, Crossmatch (AHG) See Detail 07/26/21 05:15: RPR Titer Non reactive, Hep Bs Antigen Negative, HIV 1&2 Ag/Ab, 4th Gen Non reactive, Rubella IgG Antibody 2.64 07/26/21 08:58: Urine Color Dk yellow, Urine Appearance Cloudy, Urine pH 6.5, Ur Specific [place] >= 1.030, Urine Protein 1+, Urine Glucose (UA) Negative, Urine Ketones Trace, Urine Blood 3+, Urine Nitrate Negative, Urine Bilirubin Negative, Urine Urobilinogen 0.2, Ur Leukocyte Esterase 1+ A, Urine RBC 20-50, Urine WBC 5-10, Ur Squamous Epith Cells 3-5, Urine Bacteria 2+ 07/26/21 08:58: Urine Opiates Screen Negative, Urine Methadone Screen Negative, Ur Barbituates Screen Negative, Ur Phencyclidine Scrn Negative, Ur Amphetamines Screen Negative, U Benzodiazepines Scrn Negative, Urine Cocaine Screen Negative, U Marijuana (THC) Screen Negative 07/26/21 19:00: Hgb 7.9 L, Hct 24.9 L 07/27/21 00:45: Hgb 11.4 L D, Hct 35.2 L 07/27/21 06:30: Hgb 10.6 L, Hct 32.7 L I & O for Last 24 hours: Intake & Output 11/11/21 11/12/21 11/13/21 11/14/21 11:59 11:59 11:59 11:59 Weight 218 lb Microbiology Reports for the Last 24 Hours: Microbiology 07/26/21 08:58 Urine,Clean Catch Urine Culture - Preliminary Gram Negative Rods - Constitutional no acute distress - *Routine HEENT Exam Head: Present: normocephalic Eye: Present: EOMI, PERRL ENT: Present: mucous membranes moist Assessment and Plan (1) Normal delivery at term Status: Acute Category: Medical Code(s): O80 - Encounter for full-term uncomplicated delivery (2) Antepartum anemia complicating Status: Acute Category: Medical Code(s): O99.019 - Anemia complicating , unspecified trimester (3) hemorrhage Status: Acute Category: Medical Code(s): O72.1 - Other immediate hemorrhage - Assessment and plan all Dx Assessment and Plan for all problems:: She is doing much better this morning. She has received 2 units of blood. She has more energy. Her blood pressures are stable. She denies any discomfort or pain. Her lochia is normal. We will plan to send her home tomorrow. We have started her on antibiotics for a UTI.
[2021-07-27 16:38] VITALS: BP 113/67; PULSE 71; RESP 18; TEMP 36.8; O2SAT 95
[2021-07-27 20:00] VITALS: BP 113/63; PULSE 65; RESP 17; TEMP 36.7; O2SAT 97
--- NOTE | 2021-07-27 20:19 | PC.NURSE ---
BLOOD UNIT #1 STARTED PER Isaias GONZALEZ RN 07/26/21 AT 1954. BLOOD UNIT #2 STARTED PER Isaias GONZALEZ RN 07/26/21 AT 2205.
[2021-07-28 04:00] VITALS: BP 118/61; PULSE 64; RESP 18; TEMP 36.8; O2SAT 97
[2021-07-28 09:06] VITALS: BP 127/58; PULSE 61; RESP 16; TEMP 37; O2SAT 97
--- NOTE | 2021-07-28 11:47 | HMH.OBDCSM ---
General - General Admission date:: 07/26/21 Discharge date: 07/28/21 HPI - History of Present Illness History of present illness: She is a 26-year-old 5 now para 4 aborta 1 at 39 weeks gestational age. She was feeling cramps and and pressure and as result of that we elected to deliver her at term. She is also had a fairly quick delivery in the past. Hospital Course Hospital Course: She was started on IV access and had her membranes ruptured. Under labor epidural progressed to full dilation and delivered spontaneously a liveborn male child at 11:46 AM on the morning of June 25, 2021. Baby weighed 6 pounds 14 ounces with 19 inches long. He had Apgars of 9 at 1 minute and 9 at 5 minutes. Her perineum was intact. But 6 to 7 hours after her surgery she began having some heavy bleeding and was found that her uterus was quite boggy. It was full of clots. We were able to evacuate the clots. She received Hemabate as well as oxytocin and Cytotec. Since then she has done well. We did transfuse her 2 units of blood because her hemoglobin initially was only 8.7 prior to delivery. She has done well since then and has remained afebrile throughout her hospitalization. She did have a urinary tract infection and we have been treating that with Macrobid. We will give her a prescription for that when she goes home. She is discharged home to follow-up with me in approximately 2 weeks time. She will continue with her vitamins and iron. She is taking [id number] analgesics. She was given the usual instructions with respect to limiting her activity, driving and sexual activity. She has O+ blood, she is rubella unknown and hepatitis B unknown. She is group B streptococcus negative. She is bottlefeeding. Her analyst competitive intelligence is Dr. Rodriguez. Her condition on discharge is stable and improved. Rhogam Administration: Not Indicated Objective Vital signs: Temp Pulse Resp BP Pulse Ox 98.6 F 61 16 127/58 L 97 07/28/21 09:06 07/28/21 09:06 07/28/21 09:06 07/28/21 09:06 07/28/21 09:06 no acute distress - *Routine HEENT Exam Head: Present: normocephalic Eye: Present: EOMI, PERRL ENT: Present: mucous membranes moist Results Labs on day of discharge: Labs from last 24 hours 07/26/21 05:15 RPR Titer Non reactive DS: Diagnosis - Discharge Diagnosis (1) Normal delivery at term Status: Acute (2) Antepartum anemia complicating Status: Acute (3) hemorrhage Status: Acute (4) UTI (urinary tract infection) following delivery Status: Acute Discharge Plan - Patient Discharge Instructions ACTIVITY: No heavy lifting DIET: continue same diet Additional Instructions: No heavy lifting/strenuous activity. Nothing in the vagina for 6 weeks. Follow up with MD as scheduled. Patient Instructions: Depression, Hemorrhage, DI for Labor and Delivery, Vaginal , DI for Pre-eclampsia, [facility] Post Discharge Instructions, Preventing the Spread of Coronavirus Discharge Instructions - Follow up Plan Follow up with: Srikanth Calero MD [Staff Physician] - Disposition: Home, Self-Care Condition at discharge:: Stable Home Medications: Home Medications Medication Instructions Recorded Confirmed Type PNV 153-FA 400 mcg-om3 35 mg-dha 1 tab PO DAILY 06/25/21 07/26/21 History 25 mg-epa 5 mg-fish oil chew tablet Ferrous Sulfate [Ferrous Sulfate 325 mg PO DAILY #30 tab 07/28/21 Rx 325mg Tablet] Nitrofurantoin Monohyd/M-Cryst 100 mg PO BID #10 cap 07/28/21 Rx [Macrobid 100 mg Capsule] Prescriptions/Medication Reconciliation: New Ferrous Sulfate [Ferrous Sulfate 325mg Tablet] 325 mg PO DAILY #30 tab Nitrofurantoin Monohyd/M-Cryst [Macrobid 100 mg Capsule] 100 mg PO BID #10 cap Continued PNV 153-FA 400 mcg-om3 35 mg-dha 25 mg-epa 5 mg-fish oil chew tablet 1 tab PO DAILY - Problem Reconci
== END 2021-07-28 12:40 | disposition home or self-care (01) | DRG 806 ==
PROVIDERS: Admitting Provider Nurse Practitioner Obstetrics & Gynecology; PCP Physician Assistant; Visit Provider Nurse Practitioner Obstetrics & Gynecology
DX: O99.02 Anemia complicating childbirth (principal); O72.1 Other immediate postpartum hemorrhage; Z37.0 Single live birth; O86.20 Urinary tract infection following delivery, unspecified; N39.0 Urinary tract infection, site not specified; Z3A.39 39 weeks gestation of pregnancy
CPT/HCPCS: 59409; 36415; 59025; 80305; 81001; 85014; 85018; 85025; 86592; 86762; 86850; 87086; 87088; 87186; 87340; 94761; C1758; C9803; G0283; J0595; J2405; P9016; U0003; U0005

== ENCOUNTER → 2022-02-04 10:43 | Outpatient (CLI) | payer MEDICAID, SELFPAY ==
[2022-02-04 11:39] LABS: Basophils # 0.1 K/mm3 (0-0.2); Basophils % 0.8 % (0.1-2.0); Eosinophils % 0.3 % (0.1-12.0); Hematocrit 35.1 % (37.0-47.0); Hemoglobin 11.3 g/dL (12.2-16.2); Lymphocytes # 1.4 K/mm3 (0.7-4.5); Lymphocytes % 16.8 % (10-50); Mean Corpuscular HGB Conc 32.2 g/dL (31.8-35.4); Mean Corpuscular Hemoglobin 27.4 pg (27.0-31.2); Mean Corpuscular Volume 85.2 fl (81-99); Monocytes # 0.3 K/mm3 (0.1-1.0); Neutrophils # 6.5 K/mm3 (1.8-7.8); Neutrophils % 78.1 % (37.0-80.0); Platelet Count 375 K/mm3 (142-424); Red Blood Count 4.12 M/mm3 (4.20-5.40); White Blood Count 8.3 K/mm3 (4.8-10.8)
[2022-02-05 06:27] LABS: HSV 2 IgG, Type Spec <0.91 index (0.00-0.90); Rubella Antibodies, IgG 3.04 index (Immune >0.99)
[2022-02-05 09:29] LABS: HIV Screen 4th Generation wRfx Non Reactive (Non Reactive); Hepatitis B Surface Antigen Negative (Negative); Hepatitis C Antibody 0.2 s/co ratio (0.0-0.9)
[2022-02-05 11:19] LABS: Hemoglobin (Hgb) Solubility Negative (Negative); Rapid Plasma Reagin Ab Titer Non Reactive (NonRea<1:1)
== END ==
PROVIDERS: Visit Provider Nurse Practitioner Obstetrics & Gynecology
DX: N92.6 Irregular menstruation, unspecified (principal); Z34.90 Encounter for supervision of normal pregnancy, unspecified, unspecified trimester
CPT/HCPCS: 36415; 84702; 85025; 85660; 86592; 86695; 86703; 86762; 86790; 86850; 87340; 87380; G0432

== ENCOUNTER → 2022-02-11 10:40 | Outpatient (CLI) | payer MEDICAID, SELFPAY ==
--- NOTE | 2022-02-11 10:41 | US_ITS ---
FINAL REPORT CLINICAL HISTORY: US OB Before 14 wks for Dates/Confirmation FINDINGS: There is a single live intrauterine gestation. Presentation is fundal. There is a 4.6 cm fibroid. Placenta is anterior. Cardiac activity is confirmed at 152 bpm. The fetus is active. SPINE: No anomalies identified. AMNIOTIC FLUID: Appropriate amount. MEASUREMENTS: ULTRASOUND AGE: 13 weeks 3 days. GESTATION AGE: 12 weeks 6 days. ESTIMATED WEIGHT: 71 g GROWTH PERCENTILE: 50% BPD: 2.2 cm consistent with 13 weeks 5 days. OFD: 2.7 cm . HC: 7.9 cm consistent with 13 weeks 3 days. AC: 6.7 cm consistent with 13 weeks 3 days. FL: 1 cm consistent with 13 weeks 0 days. CRL: 6.7 cm consistent with 13 weeks 0 days. HC/AC: 1.17 CI: 81% FL/BPD: 44% FL/AC: 15% IMPRESSION: Single living IUP with an ultrasound age of 13 weeks 3 days. Reviewed, Interpreted and Dictated by Arun Ruff III, MD Transcribed by Mark Fisher Authenticated by Arun Ruff III, MD on 02/11/2022 04:01:[address] [facility]
== END ==
PROVIDERS: PCP Physician Assistant; Visit Provider Nurse Practitioner Obstetrics & Gynecology
DX: O26.841 Uterine size-date discrepancy, first trimester (principal)
CPT/HCPCS: 76801

== ENCOUNTER → 2022-04-01 14:15 | Outpatient (CLI) | payer MEDICAID, SELFPAY ==
--- NOTE | 2022-04-01 14:15 | US_ITS ---
FINAL REPORT CLINICAL HISTORY: OB complete FINDINGS: There is a single live intrauterine gestation. Presentation is breech. The cervix is closed and measures 3 cm. Placenta is posterior grade 1. movement is noted. Heart rate is it had said at 147 beats per minute Three-vessel cord with satisfactory umbilical cord insertion. Four-chamber heart is noted. ABDOMEN: Both kidneys are unremarkable. Stomach is unremarkable. SPINE: No anomalies identified. AMNIOTIC FLUID: Appropriate amount. MEASUREMENTS: ULTRASOUND AGE: 20 weeks 2 days. GESTATION AGE: 20 weeks 3 days. ESTIMATED WEIGHT: 343 g GROWTH PERCENTILE: 37 % BPD: 4.78 cm corresponding to 20 weeks 4 days. OFD: 6.13 cm corresponding to 20 weeks 5 days. HC: 17.27 cm corresponding with 19 weeks 6 days. AC: 15.46 cm corresponding to 20 weeks 5 days. FL: 3.19 cm corresponding to 20 weeks 0 days. CEREBELLUM: 2.02 cm corresponding to 20 weeks 4 days. HUMERUS: 3.08 cm corresponding to 20 weeks 2 days. HC/AC: 1.12 CI: 78% FL/BPD: 67% FL/AC: 21% IMPRESSION: Single living IUP with an ultrasound age of 20 weeks 2 days. Reviewed, Interpreted and Dictated by Arun Ruff III, MD Transcribed by Naila Alarcon Authenticated and [facility]
== END ==
PROVIDERS: Visit Provider Obstetrics & Gynecology
DX: Z34.90 Encounter for supervision of normal pregnancy, unspecified, unspecified trimester (principal)
CPT/HCPCS: 76811

== ENCOUNTER 2022-07-24 11:24 | Outpatient (CLI) | payer MEDICAID, SELFPAY ==
[2022-07-24 11:37] VITALS: BMI 36.0
[2022-07-24 11:45] VITALS: BP 129/80; PULSE 106; RESP 17; TEMP 36.8; O2SAT 99; BMI 36.0
[2022-07-24 12:24] LABS: Basophils % 0.4 % (0.1-2.0); Eosinophils % 0.2 % (0.1-12.0); Hematocrit 25.9 % (37.0-47.0); Hemoglobin 8.2 g/dL (12.2-16.2); Lymphocytes # 1.6 K/mm3 (0.7-4.5); Lymphocytes % 17.8 % (10-50); Mean Corpuscular HGB Conc 31.5 g/dL (31.8-35.4); Mean Corpuscular Volume 79.5 fl (81-99); Monocytes # 0.5 K/mm3 (0.1-1.0); Monocytes % 5.2 % (1.7-9.3); Neutrophils # 6.8 K/mm3 (1.8-7.8); Neutrophils % 76.6 % (37.0-80.0); Platelet Count 470 K/mm3 (142-424); Red Blood Count 3.26 M/mm3 (4.20-5.40); Red Cell Distribution Width 16.4 % (11.5-17.5); White Blood Count 8.8 K/mm3 (4.8-10.8)
[2022-07-24 12:33] LABS: Activated Partial Thrombo Time 27.5 seconds (22.8-30.6); Fibrinogen 496 mg/dL (229.9-363.5); INR 0.93 (0.9-1.1); Prothrombin Time 10.1 seconds (10.1-12.5)
[2022-07-24 12:34] LABS: Amphetamine/Metha Screen,Urine Negative ng/ml (<1000); Barbiturates Screen,Urine Negative ng/ml (<200)
[2022-07-24 12:35] LABS: Benzodiazepines Screen,Urine Negative ng/ml (<200)
[2022-07-24 12:36] LABS: Cannabinoid Screen,Urine Negative ng/ml (<50); Cocaine Screen,Urine Negative ng/ml (<300)
[2022-07-24 12:37] LABS: Methadone Screen,Urine Negative ng/ml (<300)
[2022-07-24 12:38] LABS: Opiate Screen,Urine Negative ng/ml (<300); Phencyclidine Screen,Urine Negative ng/ml (<25)
[2022-07-24 12:40] LABS: Alanine Aminotransferase 11 U/L (12-78); Aspartate Amino Transferase 20 U/L (14-36); Blood Urea Nitrogen 9 mg/dl (7-17); Calcium 8.5 mg/dl (8.4-10.2); Carbon Dioxide 26 mmol/L (22.0-30.0); Chloride 102 mmol/L (98-107); Creatinine Clearance Estimated 362 mL/min (50-200); Estimated Glomerular Filt Rate 193 ml/min (>60); GFR (African American) 233 ML/MIN (>60); Glucose 104 mg/dl (74-100); Sodium 136 mmol/L (136-145); Uric Acid 4.1 mg/dl (2.5-6.2)
[2022-07-24 12:44] LABS: D-Dimer 0.89 ug/mL (0.0-0.5)
== END 2022-07-24 13:29 | disposition home or self-care (01) ==
LOC: OBOUT 11:26 → OB 11:27
PROVIDERS: Visit Provider Nurse Practitioner Obstetrics & Gynecology
DX: O13.4 Gestational [pregnancy-induced] hypertension without significant proteinuria, complicating childbirth (principal); Z3A.36 36 weeks gestation of pregnancy
CPT/HCPCS: 59025; 80048; 80305; 84450; 84460; 84550; 85025; 85378; 85384; 85610; 85730; 86403; G0463

== ENCOUNTER 2022-08-06 17:14 | Outpatient (CLI) | payer MEDICAID, SELFPAY ==
[2022-08-06] VITALS (26 sets, daily range): BP systolic 118–152; BP diastolic 61–98; PULSE 70–94; RESP 18; TEMP 36.7; O2SAT 96; BMI 35.7
[2022-08-06 17:53] LABS: Microscopic, Urine URINE MICROSCOPIC (MICROSCOPIC)
[2022-08-06 18:10] LABS: Appearance,Urine SL CLOUDY (Clear); Bilirubin,Urine Negative (Negative); Blood, Urine Negative (Negative); Color,Urine YELLOW (Yellow); Glucose,Urine (UA) Negative (Negative); Ketones,Urine Negative (Negative); Leukocyte Esterase,Urine 1+ (Negative); Nitrate,Urine Negative (Negative); Protein,Urine TRACE (Negative); Specific Gravity, Urine 1.025 (1.005-1.030); Urobilinogen,Urine 0.2 EU/dl (0.2)
[2022-08-06 18:33] LABS: Barbiturates Screen,Urine Negative ng/ml (<200)
[2022-08-06 18:34] LABS: Amphetamine/Metha Screen,Urine Negative ng/ml (<1000); Benzodiazepines Screen,Urine Negative ng/ml (<200)
[2022-08-06 18:35] LABS: Cannabinoid Screen,Urine Negative ng/ml (<50)
[2022-08-06 18:36] LABS: Cocaine Screen,Urine Negative ng/ml (<300); Methadone Screen,Urine Negative ng/ml (<300)
[2022-08-06 18:37] LABS: Opiate Screen,Urine Negative ng/ml (<300)
[2022-08-06 18:38] LABS: Phencyclidine Screen,Urine Negative ng/ml (<25)
[2022-08-06 18:45] LABS: Basophils % 0.5 % (0.1-2.0); Eosinophils # 0.1 K/mm3 (0.0-0.4); Eosinophils % 0.7 % (0.1-12.0); Hematocrit 27.7 % (37.0-47.0); Hemoglobin 8.7 g/dL (12.2-16.2); Lymphocytes # 1.5 K/mm3 (0.7-4.5); Lymphocytes % 16.5 % (10-50); Mean Corpuscular HGB Conc 31.5 g/dL (31.8-35.4); Mean Corpuscular Hemoglobin 24.8 pg (27.0-31.2); Mean Corpuscular Volume 78.7 fl (81-99); Mean Platelet Volume 9.5 fl (7.4-10.4); Monocytes # 0.6 K/mm3 (0.1-1.0); Monocytes % 6.3 % (1.7-9.3); Neutrophils # 6.9 K/mm3 (1.8-7.8); Neutrophils % 76.1 % (37.0-80.0); Platelet Count 415 K/mm3 (142-424); Red Blood Count 3.52 M/mm3 (4.20-5.40); Red Cell Distribution Width 17.8 % (11.5-17.5)
[2022-08-06 18:56] LABS: Alanine Aminotransferase 9 U/L (12-78); Aspartate Amino Transferase 18 U/L (14-36); Blood Urea Nitrogen 8 mg/dl (7-17); Calcium 9.1 mg/dl (8.4-10.2); Carbon Dioxide 29 mmol/L (22.0-30.0); Chloride 96 mmol/L (98-107); Creatinine Clearance Estimated 239 mL/min (50-200); Estimated Glomerular Filt Rate 121 ml/min (>60); GFR (African American) 146 ML/MIN (>60); Glucose 78 mg/dl (74-100); Sodium 137 mmol/L (136-145); Uric Acid 3.5 mg/dl (2.5-6.2)
[2022-08-06 18:58] LABS: Activated Partial Thrombo Time 27.9 seconds (22.8-30.6); Fibrinogen 457 mg/dL (229.9-363.5); INR 0.92 (0.9-1.1)
[2022-08-06 19:01] LABS: D-Dimer 0.85 ug/mL (0.0-0.5)
--- NOTE | 2022-08-06 19:21 | PC.NURSE ---
Guillermina from lab called with a critical result. Potassium level 3.0 Name, , and lab value verified x2.
[2022-08-06 19:49] LABS: Bacteria,Urine 4+ /lpf; RBC,Urine Occasional #/hpf (0-3)
== END 2022-08-07 00:08 | disposition home or self-care (01) ==
LOC: OBOUT 17:15 → OB 17:18
PROVIDERS: Visit Provider Nurse Practitioner Obstetrics & Gynecology
DX: Z34.90 Encounter for supervision of normal pregnancy, unspecified, unspecified trimester (principal)
CPT/HCPCS: 59025; 80048; 80305; 81001; 84450; 84460; 84550; 85025; 85378; 85384; 85610; 85730; 87086; 87088; 87186; 96365; 96366; 96367; G0463

== ENCOUNTER 2022-08-08 05:11 | Inpatient (IN) | payer MEDICAID, SELFPAY ==
[2022-08-08] VITALS (30 sets, daily range): BP systolic 124–187; BP diastolic 62–98; PULSE 56–90; RESP 18–19; TEMP 36.6–37.4; O2SAT 96–100; BMI 35.7
[2022-08-08 05:59] LABS: Coronavirus 19, PCR Not Detected (NotDetected); Influenza A, PCR Not Detected (NotDetected); Influenza B, PCR Not Detected (NotDetected)
[2022-08-08 05:59] LABS: Microscopic, Urine URINE MICROSCOPIC (MICROSCOPIC)
[2022-08-08 06:10] LABS: Basophils # 0.1 K/mm3 (0-0.2); Basophils % 0.5 % (0.1-2.0); Eosinophils # 0.1 K/mm3 (0.0-0.4); Eosinophils % 0.6 % (0.1-12.0); Hematocrit 24.8 % (37.0-47.0); Hemoglobin 8.5 g/dL (12.2-16.2); Lymphocytes # 1.9 K/mm3 (0.7-4.5); Lymphocytes % 16.4 % (10-50); Mean Corpuscular HGB Conc 34.3 g/dL (31.8-35.4); Mean Corpuscular Hemoglobin 26.8 pg (27.0-31.2); Mean Corpuscular Volume 78.2 fl (81-99); Mean Platelet Volume 8.1 fl (7.4-10.4); Monocytes # 0.6 K/mm3 (0.1-1.0); Monocytes % 5.5 % (1.7-9.3); Neutrophils # 8.9 K/mm3 (1.8-7.8); Platelet Count 424 K/mm3 (142-424); Red Blood Count 3.17 M/mm3 (4.20-5.40); Red Cell Distribution Width 18.8 % (11.5-17.5); White Blood Count 11.5 K/mm3 (4.8-10.8)
[2022-08-08 06:12] LABS: Appearance,Urine TURBID (Clear); Bilirubin,Urine Negative (Negative); Blood, Urine Negative (Negative); Color,Urine DK YELLOW (Yellow); Glucose,Urine (UA) Negative (Negative); Ketones,Urine Negative (Negative); Leukocyte Esterase,Urine 1+ (Negative); Nitrate,Urine Negative (Negative); PH,Urine 7.5 (5.0-8.5); Protein,Urine 1+ (Negative); Specific Gravity, Urine 1.025 (1.005-1.030)
[2022-08-08 06:23] LABS: Barbiturates Screen,Urine Negative ng/ml (<200)
[2022-08-08 06:24] LABS: Benzodiazepines Screen,Urine Negative ng/ml (<200); Squamous Epithelial Cell,Urine TNTC #/hpf (0-5); WBC,Urine 20-50 #/hpf (0-3)
[2022-08-08 06:25] LABS: Amphetamine/Metha Screen,Urine Negative ng/ml (<1000); Bacteria,Urine 2+ /lpf; Mucus,Urine 1+ /lpf
[2022-08-08 06:26] LABS: Cannabinoid Screen,Urine Negative ng/ml (<50); Methadone Screen,Urine Negative ng/ml (<300)
[2022-08-08 06:27] LABS: Cocaine Screen,Urine Negative ng/ml (<300); Opiate Screen,Urine Negative ng/ml (<300)
[2022-08-08 06:28] LABS: Phencyclidine Screen,Urine Negative ng/ml (<25)
[2022-08-08 06:32] LABS: Activated Partial Thrombo Time 23.6 seconds (22.8-30.6); Fibrinogen 563 mg/dL (229.9-363.5); INR 0.91 (0.9-1.1); Prothrombin Time 9.9 seconds (10.1-12.5)
[2022-08-08 06:36] LABS: Magnesium 1.5 mg/dl (1.6-2.3)
[2022-08-08 06:52] LABS: Alanine Aminotransferase 9 U/L (12-78); Anion Gap 15.3 mEq/L (5-15); Aspartate Amino Transferase 18 U/L (14-36); Blood Urea Nitrogen 7 mg/dl (7-17); Carbon Dioxide 26 mmol/L (22.0-30.0); Chloride 98 mmol/L (98-107); Creatinine Clearance Estimated 287 mL/min (50-200); Estimated Glomerular Filt Rate 149 ml/min (>60); GFR (African American) 180 ML/MIN (>60); Glucose 80 mg/dl (74-100); Potassium 3.3 mmoL/L (3.5-5.1); Sodium 136 mmol/L (136-145); Uric Acid 3.7 mg/dl (2.5-6.2)
--- NOTE | 2022-08-08 07:19 | HMH.PHAINT1 ---
Pharmacy Intervention Comments: MEDICATION RECONCILIATION COMPLETED ON PATIENT USING EXTERNAL FILL HISTORY FROM PHARMACY. -JAYSHREE RAMOS, JUVENCIOD
--- NOTE | 2022-08-08 08:50 | EXP.LABOR.NO ---
Labor Note Subjective: Date: 08/08/22 Time: 08:50 regular contraction Objective: NST:: Reactive Contractions:: every 2-3 minutes Cervical Dilation:: 4 Effacement:: 75% Station: -1 Membranes: artificially ruptured Comment:: I ruptured membranes and there was clear fluid. Fetus: Monitoring?: Yes monitoring type:: External Assessment: Labor progressing?: Yes Cephalopelvic disproportion?: No All Active Problems (Updated 08/08/22 @ 06:36 by Carolina Cheung RN) Hypokalemia (Acute) (Acute) Routine cultures positive for HSV1 (Acute) Insufficient care in third trimester (Acute) induced hypertension, antepartum (Acute) Plan: Anesthesia for epidural?: Yes Continue to labor down?: Yes Plan for ?: No Continue to monitor?: Yes Start pushing?: No
--- NOTE | 2022-08-08 08:51 | EXP.HP ---
History of Present Illness *Admission Date: 08/08/22 *Reason for visit:: Increased blood pressure, anemia, term , previous vaginal delivery *History of present illness: She is a 27-year-old 6 para 4 aborta 1 at 38+ weeks gestational age. She was seen a day ago and had increased blood pressure this subsequently settled with rest but we elected to bring her back for induction of labor at term today. She also has severe anemia and hypokalemia. [facility] Medical History Anemia History of gestational hypertension History of hemorrhage Family History No significant family history Social History Smoking Status: Never smoker alcohol intake: never substance use type: denies use current occupational status: unemployed Travel in the last 8 weeks: None do you feel safe at home: Yes victim of physical abuse: No victim of emotional abuse: No victim of sexual abuse: No Review of Systems Review of Systems Review of systems:: pertinent systems reviewed and negative unless documented below Meds Home Medications and Allergies Home Medications Medication Instructions Recorded Confirmed Type PNV 153-FA 400 mcg-om3 35 mg-dha 1 tab PO DAILY Supplement 06/25/21 08/08/22 History 25 mg-epa 5 mg-fish oil chew tablet ( Gummies) ferrous sulfate 325 mg (65 mg 325 mg PO TID Supplement 08/04/22 08/08/22 History iron) tablet potassium chloride 20 mEq 20 meq PO BID Supplement 08/06/22 08/08/22 History tablet,extended release(part/cryst) (Klor-Con M) New Prescriptions to Start Prescriptions: Allergies Allergy/AdvReac Type Severity Reaction Status Date / Time Penicillins [PENICILLINS] Allergy Unknown -- Verified 08/04/22 10:52 Exam Data for Last 24 hours Vital signs and Labs for Last 24 Hours: Temp Pulse Resp BP Pulse Ox 97.8 F 90 18 137/76 97 08/08/22 05:58 08/08/22 05:58 08/08/22 05:58 08/08/22 05:58 08/08/22 05:58 Laboratory Results - last 24 hr 08/08/22 05:32: Urine Color Dk yellow, Urine Appearance Turbid, Urine pH 7.5, Ur Specific [place] 1.025, Urine Protein 1+, Urine Glucose (UA) Negative, Urine Ketones Negative, Urine Blood Negative, Urine Nitrate Negative, Urine Bilirubin Negative, Urine Urobilinogen 2.0, Ur Leukocyte Esterase 1+ A, Urine RBC 3-5, Urine WBC 20-50, Ur Squamous Epith Cells Tntc, Ur Renal Epithelial Cell 3-5, Urine Bacteria 2+, Urine Mucus 1+ 08/08/22 05:32: Urine Opiates Screen Negative, Urine Methadone Screen Negative, Ur Barbituates Screen Negative, Ur Phencyclidine Scrn Negative, Ur Amphetamines Screen Negative, U Benzodiazepines Scrn Negative, Urine Cocaine Screen Negative, U Marijuana (THC) Screen Negative 08/08/22 05:45: WBC 11.5 H D, RBC 3.17 L, Hgb 8.5 L, Hct 24.8 L, MCV 78.2 L, MCH 26.8 L, MCHC 34.3, RDW 18.8 H, Plt Count 424, MPV 8.1, Neut % (Auto) 77.0, Lymph % (Auto) 16.4, Grand % (Auto) 5.5, Eos % (Auto) 0.6, Baso % (Auto) 0.5, Neut # (Auto) 8.9 H, Lymph # (Auto) 1.9, Grand # (Auto) 0.6, Eos # (Auto) 0.1, Baso # (Auto) 0.1 08/08/22 05:45: PT 9.9 L, INR 0.91, APTT 23.6, Fibrinogen 563 H 08/08/22 05:45: D-Dimer 1.00 H, Sodium 136, Potassium 3.3 L, Chloride 98, Carbon Dioxide 26, Anion Gap 15.3 H, BUN 7, Creatinine 0.50 L, Estimated Creat Clear 287, Estimated GFR 149, Est GFR ( Amer) 180 D, Glucose 80, Uric Acid 3.7, Calcium 9.0, AST 18, ALT 9 L 08/08/22 05:45: SARS-CoV-2 (PCR) Not detected, Influenza A Untype (PCR) Not detected, Influenza Type B (PCR) Not detected 08/08/22 05:45: Blood Type O Positive, Antibody Screen Negative, Crossmatch (AHG) See Detail 08/08/22 05:45: Magnesium 1.5 L I & O for Last 24 hours: Intake & Output 08/05/22 08/06/22 08/07/22 08/08/22 11:59 11:59 11:59 11:59 Weight 235 lb Constitutional Constitutional: no acu
--- NOTE | 2022-08-08 09:52 | EXP.ANES.CKL ---
[facility] Medical History Anemia History of gestational hypertension History of hemorrhage Family History No significant family history Social History Smoking Status: Never smoker alcohol intake: never substance use type: denies use current occupational status: unemployed Travel in the last 8 weeks: None do you feel safe at home: Yes victim of physical abuse: No victim of emotional abuse: No victim of sexual abuse: No [facility] Anesthesia Checklist Patient Identification Patient Identification: Arm Band Structural Data Admitted From: Inpatient Planned Operative Procedure/s: Labor Epidural Consent for Planned Operative Procedure(s) Verified: Yes Verified Documents: Surgical Consent and History and Physical NPO Status Verified Time NPO: 00:00 Additional verifications Anesthesia Reactions: No Airway Assessment C-Spine Mobility Assessed: Yes TMJ Mobility Assessed: Yes Dentition: Good Dentition Neurological Assessment Level of Consciousness: Awake and Alert Anesthesia Plan Anesthesia Risk discussed: Yes Anesthesia Plan: Verified ASA Class: II Anesthesia Type: Epidural
[2022-08-08 10:02] LABS: Iron 28 ug/dL (37-170)
[2022-08-08 10:11] LABS: Total Iron Binding Capacity 537 ug/dL (265-497)
--- NOTE | 2022-08-08 10:38 | P.PCN_ITS ---
Delivery Note Delivery Date:: 08/08/22 Delivery Time:: 10:30 Anesthesia Type: Epidural Was labor medically induced?: Yes Induction method: per pitocin protocol Gestational age (weeks): 38 delivered prior to 39 weeks?: Yes Justification for early elective delivery:: Gestational Hypertension Gender: Male at 1 minute: 9 at 5 minutes: 9 Delivery Procedure:: She is a 27-year-old 6 para 5 aborta 1 who was 38 weeks gestational age. She had increased blood pressure and as result of that we admitted her for induction of labor at term. She was started on IV oxytocin had her membranes ruptured. She progressed to full dilation and delivered spontaneously a liveborn male child at 10:30 AM on the morning of August 08, 2022. On deliver the head the anterior shoulder then easily delivered followed by the rest the infant's body atrau matically. The oropharynx and nasopharynx were bulb suction. The baby was vigorous. We allowed the cord to continue to pulsate for approximately 1 minute. The cord was then doubly clamped and cut and the infant was placed on the mother's abdomen for further care. The nurse assigned Apgars of 9 at 1 minute and 9 at 5 minutes. I then obtained cord blood. She received IV oxytocin and using gentle traction on the cord and countertraction the fundus I was able to easily deliver the placenta intact. He had a normal three-vessel cord. There were no perineal or vaginal lacerations. She is rubella immune, and has O+ blood, she was group B streptococcus negative. She plans to bottlefeed. Her estimated blood loss was approximately 200 cc. Placental Delivery Description: Spontaneous
[2022-08-09] VITALS (12 sets, daily range): BP systolic 108–136; BP diastolic 55–73; PULSE 48–60; RESP 15–20; TEMP 36.3–36.7; O2SAT 95–98
[2022-08-09 06:48] LABS: Hematocrit 26.9 % (37.0-47.0); Hemoglobin 8.4 g/dL (12.2-16.2)
[2022-08-09 07:02] LABS: Magnesium 5.6 mg/dl (1.6-2.3)
--- NOTE | 2022-08-09 13:08 | EXP.ACUTE.PN ---
Subjective *Date: 08/09/22 *Time: 13:08 Interval history: She continues to do well. She is eating and drinking and ambulating. She is bottlefeeding. Her blood pressure was slightly elevated yesterday so we started her on magnesium sulfate. We will finish this at 10:00 this evening. She received 1 dose of Venifer and we will continue this for the following week. She will come to outpatient infusions for this. She feels better. Her headache is gone. Medical Exam Vital signs and Labs for Last 24 Hours: Vital Signs Temp Pulse Resp BP BP Pulse Ox 08/09/22 09:35 98.0 F 50 L 18 119/70 98 08/09/22 06:57 53 L 120/71 08/09/22 05:57 48 L 132/70 08/09/22 04:57 51 L 119/64 08/09/22 04:00 97.3 F L 60 15 119/69 95 08/09/22 02:57 54 L 120/68 08/09/22 01:57 55 L 129/73 08/09/22 00:57 52 L 136/71 08/08/22 23:55 58 L 138/67 08/08/22 23:40 56 L 140/67 08/08/22 23:25 57 L 138/63 08/08/22 23:10 61 151/72 H 08/08/22 22:55 56 L 131/66 08/08/22 22:40 60 136/68 08/08/22 22:37 59 L 131/67 08/08/22 22:25 56 L 187/96 H 08/08/22 22:05 63 154/84 H 08/08/22 22:00 58 L 150/84 H 08/08/22 21:55 56 L 153/82 H 08/08/22 21:50 57 L 163/78 H 08/08/22 21:45 60 163/98 H 08/08/22 21:35 64 168/92 H 08/08/22 21:20 58 L 178/93 H 08/08/22 19:01 60 162/83 H 08/08/22 19:00 98.9 F 61 18 184/96 H 08/08/22 20:53 59 L 175/96 H 08/08/22 19:55 99.3 F 62 19 182/90 H 96 08/08/22 18:15 99.0 F 70 162/83 H 08/08/22 15:30 85 18 133/79 08/08/22 14:30 67 18 132/62 08/08/22 13:30 67 18 142/68 H 98 Intake and Output 08/09/22 08/09/22 08/09/22 03:59 11:59 19:59 Output Total 600 / 1250 650 / 1250 Balance -600 / -1250 -650 / -1250 Output: Output, Urine Amount 600 / 1250 650 / 1250 Other: Number of Voids 1 1 Laboratory Results - last 24 hr 08/08/22 05:32: Urine Color Dk yellow, Urine Appearance Turbid, Urine pH 7.5, Ur Specific [place] 1.025, Urine Protein 1+, Urine Glucose (UA) Negative, Urine Ketones Negative, Urine Blood Negative, Urine Nitrate Negative, Urine Bilirubin Negative, Urine Urobilinogen 2.0, Ur Leukocyte Esterase 1+ A, Urine RBC 3-5, Urine WBC 20-50, Ur Squamous Epith Cells Tntc, Ur Renal Epithelial Cell 3-5, Urine Bacteria 2+, Urine Mucus 1+ 08/08/22 05:32: Urine Opiates Screen Negative, Urine Methadone Screen Negative, Ur Barbituates Screen Negative, Ur Phencyclidine Scrn Negative, Ur Amphetamines Screen Negative, U Benzodiazepines Scrn Negative, Urine Cocaine Screen Negative, U Marijuana (THC) Screen Negative 08/09/22 06:22: Hgb 8.4 L, Hct 26.9 L 08/09/22 06:22: Magnesium 5.6 H D I & O for Labs for Last 24 Hours: Intake & Output 08/07/22 08/08/22 08/09/22 08/10/22 11:59 11:59 11:59 11:59 Output Total 1250 / 1250 Balance -1250 / -1250 Weight 235 lb Microbiology Reports for the Last 24 Hours: Microbiology 08/08/22 05:32 Urine,Clean Catch Urine Culture - Preliminary Gram Negative Rods Head: Present atraumatic and normal inspection ENT: Present normal exam Neck: Present normal inspection Respiratory: Present normal respiratory effort Assessment and Plan *Assessment and plan (1) Anemia affecting : Status: Acute Category: Medical Code(s): O99.019 - Anemia complicating , unspecified trimester (2) Hypokalemia: Status: Acute Category: Medical Code(s): E87.6 - Hypokalemia (3) induced hypertension, antepartum: Status: Acute Category: Medical Code(s): O13.9 - Gestational [-induced] hypertension without significant proteinuria, unspecified trimester (4) Normal delivery: Status: Acute Category: Medical Code(s): O80 - Encounter for full-term uncomplicated delivery Plan
[2022-08-10 05:20] VITALS: BP 125/60; PULSE 62
[2022-08-10 11:51] VITALS: BP 135/74; PULSE 63; RESP 18; TEMP 36.7; O2SAT 99
--- NOTE | 2022-08-10 12:07 | EXP.DC.SUM ---
General Admission date:: 08/08/22 Discharge date: 08/10/22 HPI HPI HPI: She is a 27-year-old 6 para 4 aborta 1 at 38+ weeks gestational age. She was seen a day ago and had increased blood pressure this subsequently settled with rest but we elected to bring her back for induction of labor at term today. She also has severe anemia and hypokalemia. Hospital Course Hospital Course Hospital Course: She was started on IV oxytocin had her membranes ruptured. She progressed to full dilation and delivered spontaneously a liveborn male child at 10:30 AM on the morning of August 08, 2022. The baby weighed 7 pounds 13 ounces and was 19-1/2 inches long. He had Apgars of 9 at 1 minute and 9 at 5 minutes. She has done well and has remained afebrile with her hospitalization. Her hemoglobin has remained above 8 but since she has extreme iron deficiency anemia we have given her 2 doses of IV iron. She will get 3 more doses as an outpatient. She has also been receiving oral potassium since she was hypokalemic as well. Her blood pressure is elevated slightly after delivery and we did put her on magnesium sulfate for 24 hours. Since then her blood pressures have stabilized in the 120?130 range over 70 -90 range. She will be discharged home to follow-up with me in approximately 2 weeks time. She will return this week for 3 more infusions of IV iron. They will be given every other day. She will continue with her vitamins and iron orally. She was given the usual instructions with respect to limiting her activity, driving and sexual activity. She would like a bilateral salpingectomy for control. We will schedule this for about 6 weeks out. Her condition on discharge is stable and improved Exam Data for Last 24 hours Vital signs and Labs for Last 24 Hours: Temp Pulse Resp BP Pulse Ox 98.1 F 63 18 135/74 99 08/10/22 11:51 08/10/22 11:51 08/10/22 11:51 08/10/22 11:51 08/10/22 11:51 I & O for Last 24 hours: Intake & Output 08/08/22 08/09/22 08/10/22 08/11/22 11:59 11:59 11:59 11:59 Output Total 1250 / 1250 1950 / 1950 Balance -1250 / -1250 -1949 -1949 Weight 235 lb Microbiology Reports for the Last 24 Hours: Microbiology 08/08/22 05:32 Urine,Clean Catch Urine Culture - Final Escherichia coli Constitutional Constitutional: no acute distress Comments: She still looks pale *Routine HEENT Exam Head: Present normocephalic *Routine Neck Exam Neck: Present supple *Routine Respiratory Exam Respiratory: Present normal respiratory effort DS: Diagnosis Discharge Diagnosis (1) Anemia affecting : Status: Acute (2) Hypokalemia: Status: Acute (3) induced hypertension, antepartum: Status: Acute (4) Normal delivery: Status: Acute Meds Home Medications and Allergies Home Medications Medication Instructions Recorded Confirmed Type PNV 153-FA 400 mcg-om3 35 mg-dha 1 tab PO DAILY Supplement 06/25/21 08/08/22 History 25 mg-epa 5 mg-fish oil chew tablet ( Gummies) ferrous sulfate 325 mg (65 mg 325 mg PO TID Supplement 08/04/22 08/08/22 History iron) tablet potassium chloride 20 mEq 20 meq PO BID Supplement 08/06/22 08/08/22 History tablet,extended release(part/cryst) (Klor-Con M) New Prescriptions to Start Prescriptions: Allergies Allergy/AdvReac Type Severity Reaction Status Date / Time Penicillins [PENICILLINS] Allergy Unknown -- Verified 08/04/22 10:52 Discharge Plan Disposition Patient Disposition: Home, Self-Care Discharge Order Discharge Orders: Discharge Order (Routine); Ordered 08/10/22 Ordered By: Srikanth Calero Follow up Plan Prescriptions/Medication Reconciliation: Continued Gummies 400 mcg-35 mg- 25 mg-5 mg tablet,chewable 1 tab PO DAILY ferrous sulfate 325 mg (65 mg iron) tablet 325 mg PO TID
== END 2022-08-10 13:20 | disposition home or self-care (01) | DRG 807 ==
PROVIDERS: Admitting Provider Nurse Practitioner Obstetrics & Gynecology; Visit Provider Nurse Practitioner Obstetrics & Gynecology
DX: O13.4 Gestational [pregnancy-induced] hypertension without significant proteinuria, complicating childbirth (principal); Z37.0 Single live birth; O99.02 Anemia complicating childbirth; Z3A.38 38 weeks gestation of pregnancy; O99.284 Endocrine, nutritional and metabolic diseases complicating childbirth
CPT/HCPCS: 59409; 59025; 80048; 80305; 81001; 82728; 83540; 83550; 83735; 84450; 84460; 84550; 85014; 85018; 85025; 85378; 85384; 85610; 85730; 86850; 87086; 87088; 87186; 94761; 96365; 96366; 96367; C9803; G0283; G0463; J1756; J2405; U0003; U0005

== ENCOUNTER → 2022-09-26 08:55 | Outpatient (CLI) | payer MEDICAID, SELFPAY ==
[2022-09-26 10:02] LABS: Basophils # 0.1 K/mm3 (0-0.2); Eosinophils # 0.1 K/mm3 (0.0-0.4); Eosinophils % 1.3 % (0.1-12.0); Hematocrit 34.5 % (37.0-47.0); Hemoglobin 10.3 g/dL (12.2-16.2); Lymphocytes % 23.6 % (10-50); Mean Corpuscular HGB Conc 29.8 g/dL (31.8-35.4); Mean Corpuscular Hemoglobin 25.4 pg (27.0-31.2); Mean Platelet Volume 7.3 fl (7.4-10.4); Monocytes # 0.3 K/mm3 (0.1-1.0); Monocytes % 3.1 % (1.7-9.3); Neutrophils # 5.9 K/mm3 (1.8-7.8); Platelet Count 494 K/mm3 (142-424); Red Blood Count 4.06 M/mm3 (4.20-5.40); White Blood Count 8.3 K/mm3 (4.8-10.8)
[2022-09-26 11:01] LABS: Alanine Aminotransferase 24 U/L (12-78); Albumin Level 3.9 g/dl (3.5-5.0); Albumin/Globulin Ratio 1.3 (1.1-1.8); Alkaline Phosphatase 67 U/L (38-126); Aspartate Amino Transferase 30 U/L (14-36); Bilirubin,Total 0.2 mg/dl (0.2-1.3); Blood Urea Nitrogen 11 mg/dl (7-17); Calcium 8.4 mg/dl (8.4-10.2); Carbon Dioxide 27 mmol/L (22.0-30.0); Chloride 107 mmol/L (98-107); Estimated Glomerular Filt Rate 87 ml/min (>60); GFR (African American) 105 ML/MIN (>60); Glucose 67 mg/dl (74-100); Sodium 142 mmol/L (136-145); Total Protein,Serum 6.9 g/dl (6.3-8.2)
[2022-09-26 11:29] LABS: HCG,Quantitative < 2 mIU/ml (0-5.42)
== END ==
PROVIDERS: Visit Provider Nurse Practitioner Obstetrics & Gynecology
DX: Z30.09 Encounter for other general counseling and advice on contraception (principal)
CPT/HCPCS: 36415; 80053; 84702; 85025

== ENCOUNTER 2022-09-29 07:26 | Day surgery (SDC) | payer MEDICAID, SELFPAY ==
[2022-09-25 12:17] VITALS: BMI 31.4
[2022-09-29] VITALS (10 sets, daily range): BP systolic 123–148; BP diastolic 70–96; PULSE 54–86; RESP 12–18; TEMP 36.1–43; O2SAT 90–100
--- NOTE | 2022-09-29 07:46 | P.PN_ITS ---
[facility] Disclaimer: The information contained in this section may have been updated after the patient was seen, as this information can be updated by other users. Medical History Anemia History of gestational hypertension History of hemorrhage Murmur Routine cultures positive for HSV1 Surgical History Hx of tonsillectomy Family History Other Family history of CHF (congestive heart failure) Family history of cancer No significant family history Social History Smoking Status: Never smoker alcohol intake: never substance use type: denies use current occupational status: unemployed Travel in the last 8 weeks: None do you feel safe at home: Yes victim of physical abuse: No victim of emotional abuse: No victim of sexual abuse: No [facility] Anesthesia Checklist Patient Identification Patient Identification: Arm Band and Verbal (Name & ) Structural Data Admitted From: Home Planned Operative Procedure/s: Lap. tubal Consent for Planned Operative Procedure(s) Verified: Yes NPO Status Verified Time NPO: 00:00 Chart Verification Results Verified: CBC and BMP Additional verifications Anesthesia Reactions: No Airway Assessment C-Spine Mobility Assessed: Yes TMJ Mobility Assessed: Yes Dentition: Good Dentition Neurological Assessment Level of Consciousness: Awake Hx Seizures: No Numbness or tingling in extremities: No Anesthesia Plan Anesthesia Risk discussed: Yes Anesthesia Plan: Verified ASA Class: II Anesthesia Type: General
--- NOTE | 2022-09-29 08:59 | P.OP_ITS ---
Date of procedure: 09/29/22 Pre-op Diagnosis:: Desire for sterilization Post-op Diagnosis:: Desire for sterilization Procedure performed:: Laparoscopic bilateral tubal ligation with Filshie clips Surgeon:: Srikanth Calero MD WAREHOUSE PROCESSOR:: Fredo Galicia Anesthesia: [place] Estimated blood loss (mL): 25 Clinical Note:: She is a 27-year-old 5 para 5 young lady who expressed desire for sterilization. The risks and benefits as well as the irreversibility of bilateral tubal ligation were discussed with the patient prior to surgery. Operative findings:: She had a normal-appearing bulky anteverted uterus consistent with her p ostpartum state. Tubes appeared normal bilaterally. The appendix was visualized and appeared normal. The upper abdomen appeared normal. The pelvis appeared normal. Operative note:: She was taken to the operating room where general anesthesia was found to be adequate. She was prepped and draped in normal sterile fashion in the semilithotomy position. Weighted speculum is placed in vagina and the anterior lip of the cervix was grasped with a tenaculum. I then inserted a Ana uterine manipulator into the uterine cavity and insufflated the balloon. I injected 10 cc of ropivacaine around the umbilicus and made a small incision within the umbilicus. I inserted a Veress needle into the abdominal cavity. The abdominal cavity was insufflated with carbon oxide gas to a pressure of 20 mmHg. I then inserted a 5 mm trocar under direct vision. I injected through and through the pubic hairline, made a small incision here and then inserted an 8 mm trocar under direct vision. The right tube was visualized and followed to its fimbriated end. I applied 2 Filshie clips to the tube approximately 2 cm from the cornua. This was similarly performed on the patient's left side. After once again assuring hemostasis I injected 30 cc of ropivacaine into the pelvis. The gas was let out of the abdomen and the 8 mm trocar was removed. The 5 mm trocar and camera removed together. She tolerated procedure well and was taken to the recovery room in excellent condition. All sponge, instrument and needle counts were correct. The estimated blood loss was less than 25 cc. Condition: stable Disposition: PACU Specimens:: None Complications:: None
--- NOTE | 2022-09-29 09:07 | P.PNANES_ITS ---
[facility] Anesthesia Record Part I Anesthesia Record I Intake, IV Amount: 1,200 Estimated blood loss (mL): 25 Urine output (mL): 150 Blood Products used (#): none Blood Pressure: 148/84 SaO2: 90 Pulse Rate: 85 Respiratory Rate: 16 Temperature: 98.6 F Patient is:: Drowsy and Stable Stable to PACU at:: 09:05
--- NOTE | 2022-09-29 09:48 | PC.NURSE ---
0840-gave postop reprot to Brett- showed nurse abd dressing CDI and scant blood on clean chux. Patient stable drinking Dr Cooney
--- NOTE | 2022-09-29 10:00 | P.PNANES_ITS ---
[facility] Anesthesia Record Part II Anesthesia Record Part II Discharge Time: 09:36 Destination: Surgical Day Care (OP Surgery) PACU nurse assessment reviewed?: Yes Patient Condition:: Good Anesthesia Complications:: None Swallowing reflex intact?: Yes Cyanosis?: No Blood Pressure: 138/75 Pulse Rate: 55 Temperature: 98.6 F Mental Status: Alert & Oriented Pain level:: 0 Nausea and/or vomitting:: None Intake, IV Amount: 0
== END 2022-09-29 10:30 | disposition home or self-care (01) ==
PROVIDERS: PCP Nurse Practitioner Obstetrics & Gynecology; Visit Provider Nurse Practitioner Obstetrics & Gynecology
PROC: (CPT 58671; principal; 2022-09-29 08:45)
DX: Z30.2 Encounter for sterilization (principal)
CPT/HCPCS: 58671; 96374; J2405; J2710